=== PATIENT | female | born 1975 | race Caucasian/White ===

== ENCOUNTER 2019-02-14 16:08 | Inpatient (IN) | payer SELFPAY ==
[~2019-02-14 16:08] MED LIST: Iopamidol-370 76% 500 ML 1 ML ONE
--- NOTE | 2019-02-14 17:57 | CT ---
CT ANGIOGRAM THORAX WITH CONTRAST: (CTA pulmonary angiogram) DATE: 02/14/2019 HISTORY: 43-year-old female with tachycardia and dyspnea. TECHNIQUE: IV injection of iodinated contrast. Scan acquisition timing attempted to coincide with iodinated contrast bolus reaching maximal density in pulmonary arteries. 3-D MIP reconstructions. FINDINGS: There are extensive groundglass pulmonary opacities throughout most of the volume of the left lower l obe, and anterior segments of bilateral upper lobes. Relative sparing of apical segments. Moderate involvement of right middle lobe. No pleural effusion or pneumothorax. Enlarged liver with diffusely low hepatic attenuation. No thoracic aortic aneurysm or dissection. Nonspecific mild mediastinal and bilateral hilar lymphaden opathy. Trachea and bilateral mainstem bronchi are patent and clear. No pulmonary thromboembolism identified. IMPRESSION: 1) no pulmonary embolism. 2) extensive bilateral groundglass pulmonary densities. This is nonspecific, and the differential cash gnosis is long, but one possibility is noncardiogenic pulmonary edema. 3) hepatomegaly. 4) hepatic steatosis.
[2019-02-14] MEDS ORDERED: Acetaminophen 500 MG TAB PO PRN (23:12)
[2019-02-14] MEDS ORDERED: Diabetic Tussin 200 MG/10 ML UDCUP PO PRN (23:12)
[2019-02-14] MEDS ORDERED: hydrALAZINE 20 MG/ML VIAL SLOW IVP PRN (23:12)
[2019-02-14] MEDS ORDERED: Ondansetron ODT 4 MG TAB PO PRN (23:12)
[2019-02-14] MEDS ORDERED: Ondansetron PF 4 MG/2 ML Vial IVP PRN (23:12)
[2019-02-15] MEDS: methylPREDNISolone Sod Succ 40 MG VIAL IVP SCH ×2 (01:42→05:51)
[2019-02-15] MEDS: Sodium Chloride 0.9% 1,000 ML IV SCH ×3 (01:43→22:20)
[2019-02-15] MEDS ORDERED: Zolpidem Tartrate 5 MG TAB PO SCH ×2 (01:45→21:00)
--- NOTE | 2019-02-15 04:35 | HP ---
PRIMARY CARE PROVIDER: Dr. Mcknight. CHIEF COMPLAINT: Shortness of breath. HISTORY OF PRESENT ILLNESS: This is a 43-year-old female, who presents to [facility] Emergency Department in transfer from [place] [facility]. The patient initially presented with increased shortness of breath in the context of chronic tobacco abuse. The patient admitted with 2 to 3 days history of increasing shortness of breath, not amenable to home remedies for relief. The patient denied any travel history, recent exposures, or family members with similar symptoms. The patient states she did notice increased shortness of breath approximately 4 weeks prior with worsening symptoms in the last 24 to 48 hours. Chest imaging performed in the emergency room showed hyperinflation, and the patient was given normal saline in addition to bronchodilator therapy with DuoNeb, Rocephin 2 g IV, Solu-Medrol 125 mg, and transferred to [facility] Emergency Department. The patient admits to some improvement in her symptoms since presentation in the [place] [facility]. The patient denied any chest pain, but did admit to some chest tightness associated with shortness of breath, non-productive cough, and wheezing. The patient also admitted with associated fever but no diarrhea. PAST MEDICAL HISTORY: 1. Tobacco abuse. 2. Chronic obstructive pulmonary disease without formal diagnosis. 3. Hypertension. 4. Depression. 5. Insomnia. PAST SURGICAL HISTORY: 1. Status post left arm wound debridement. 2. Status post bilateral tubal ligation. CURRENT MEDICATIONS: 1. Fluoxetine 10 mg p.o. daily. 2. Lisinopril 10 mg p.o. daily. 3. Ambien 5 mg p.o. daily. ALLERGIES: NO KNOWN DRUG ALLERGIES. FAMILY HISTORY: Positive for hypertension. SOCIAL HISTORY: Resides in the [place], [place] area. Drinks up to 2 to 3 glasses of wine daily. Smokes up to a pack of cigarettes daily. No illicit drug use. REVIEW OF SYSTEMS: CONSTITUTIONAL: Negative for weight loss or gain, ability to conduct usual activities. SKIN: Negative for rash, itching. EYES: Negative for double vision, pain. ENT/MOUTH: Negative for nose bleeding, neck stiffness, pain, tenderness. CARDIOVASCULAR: Negative for palpitations, dyspnea on exertion, orthopnea. RESPIRATORY: Negative for shortness of breath, wheezing, cough, hemoptysis, fever or night sweats. GASTROINTESTINAL: Negative for poor appetite, abdominal pain, heartburn, nausea, vomiting, constipation, or diarrhea. GENITOURINARY: Negative for urgency, frequency, dysuria, nocturia. MUSCULOSKELETAL: Negative for pain, swelling. NEUROLOGIC/PSYCHIATRIC: Negative for anxiety, depression. ALLERGY/IMMUNOLOGIC: Negative for skin rash, bleeding tendency. Otherwise negative except as stated per HPI. PHYSICAL EXAMINATION: VITAL SIGNS: On admission, blood pressure 130/84, pulse 132, respiratory rate 22, temperature 98.9 degrees Fahrenheit, and O2 saturation 97% on room air. GENERAL APPEARANCE: This is a 43-year-old female, alert, and oriented x3, in [id number] respiratory distress. HEENT: Pupils are equal, round, reactive to light and accommodation. Extraocular muscles are intact. No scleral icterus. No conjunctival injection. Nares are patent. OP is clear. Oral mucosa dry. NECK: Supple. No cervical adenopathy. No thyromegaly. No carotid bruits. No JVD appreciated. Cervical spine with full active and passive range of motion. No meningeal signs noted. CHEST: Diminished breath sounds in bilateral lung chong with expiratory wheezing. CARDIOVASCULAR: S1, S2 with tachycardia. ABDOMEN: Rounded, soft, nontender, and nondistended. Bowel sounds are positive in all 4 quadrants. No palpable mass. No rebound or guarding appreciated. EXTREMITIES: Warm and dry with fair turgor. No clubbing, cyanosis, or asymmetric edema appreciated. Pulses palpable distally at the dorsalis pedis, posterior tibial, and popliteal arteries bilaterally. Capillary refill less than 2 seconds. NEUROLOGIC: Cranial nerves 2 through 12 are grossly intact. No focal or lateralizing signs appreciated. PERTINENT LABORATORY AND X-RAY FINDINGS: Sodium 132, potassium 3.7, chloride 94, CO2 of 22, BUN less than 4, creatinine 0.58, glucose 163, calcium 8.7, total bilirubin 4.4, AST 258, ALT 107, alkaline phosphatase 152, and total CK 101. Troponin I negative x1. BNP 22. Albumin 3.1. PT 12.8, INR 1.0, and PTT 26.3. CBC showed a white blood cell count of 9.5, hemoglobin 9.2, hematocrit 29, MCV 108, platelet count 210 with 80% neutrophils. Portable chest x-ray dated 02/14/2019, showed no acute cardiopulmonary process. CT angiogram of the chest dated 02/14/2019, showed no evidence for pulmonary embolus. Bilateral ground-glass opacities noted. ASSESSMENT/PLAN: 1. Acute chronic obstructive pulmonary disease exacerbation. The patient will be admitted to the telemetry unit. We will continue aggressive pulmonary supportive management. Solu-Medrol 40 mg IV q.6 hours with additional Levaquin 750 mg p.o. daily. Add Dulera 2 puffs inhaled b.i.d. Continue DuoNeb q.4 hours. Oxygen supplementation as needed to maintain O2 saturations greater than or equal to 90%. Consult Pulmonology Service in the a.m. Tobacco cessation resources. 2. Transaminitis. Suspect secondary to hepatic steatosis in conjunction with alcohol abuse. Repeat liver function tests in the a.m. GI consult for any further recommendations for management. 3. Alcohol abuse. Add Ativan 1 mg IV q.4 hours p.r.n. withdrawal symptoms. Add multivitamin, thiamine, and folate. 4. Tobacco abuse. We will offer smoking cessation resources prior to discharge. 5. Macrocytic anemia. Check B12 and folate levels in the a.m. Repeat CBC. 6. Hypertension. Resume home blood pressure regimen and monitor clinical response. 7. Prophylaxis. SCDs while in bed. Pepcid 20 mg p.o. b.i.d. CODE STATUS: Full. Surrogate medical decision maker not identified. Job ID: [id number]
[2019-02-15 05:13] LABS: ALT (SGPT) 87 U/L (8-55); AST (SGOT) 179 U/L (5-34); Albumin 2.7 g/dL (3.5-5.0); Alkaline Phosphatase 136 U/L (40-110); Anion Gap 13 mmol/L (10-20); BUN (Urea Nitrogen) 5 mg/dL (7.0-18.7); Bilirubin, Total 3.2 mg/dL (0.2-1.2); Calc. Creatinine Clearance 145 mL/min (70-130); Calcium 7.7 mg/dL (7.8-10.44); Carbon Dioxide 21 mmol/L (22-29); Chloride 101 mmol/L (98-107); Estimated GFR-MDRD Greater than 90; Globulin 2.6 g/dL (2.4-3.5); Glucose 198 mg/dL (70-105); Potassium 3.9 mmol/L (3.5-5.1); Protein, Total 5.3 g/dL (6.0-8.3); Sodium 131 mmol/L (136-145)
[2019-02-15 05:20] LABS: Hemoglobin 8.5 g/dL (12.0-16.0); Mean Corpuscular Hemoglobin 35.1 pg (27.0-31.0); Mean Platelet Volume 7.7 fL (7.4-10.4); Platelet Count 197 thou/uL (130-400); RBC Distribution Width 14.2 % (11.5-14.5); Red Blood Cell (RBC) Count 2.41 mill/uL (4.20-5.40); White Blood Cell (WBC) Count 9.6 thou/uL (4.8-10.8)
[2019-02-15 06:11] LABS: Band 7 % (5-11); Lymphocytes 11 % (21-51); MDiff Complete? YES; Monocytes 3 % (0-10); Myelocyte 1 % (0-0); Neutrophil 78 % (42-75); Nucleated RBC 1 % (0)
[2019-02-15 07:09] LABS: Vitamin B12 Greater than 2000 pg/mL (211-911)
[2019-02-15] MEDS: Mometasone/Formoterol 120 PUFF INHALER INH SCH ×2 (07:14→19:17)
[2019-02-15] MEDS: Thiamine 100 MG TAB PO SCH (08:55)
[2019-02-15] MEDS: Multivitamin W/ Minerals 1 TAB PO SCH (08:55)
[2019-02-15] MEDS: Folic Acid 1 MG TAB PO SCH (08:55)
[2019-02-15] MEDS: Famotidine 20 MG TAB PO SCH ×2 (08:55→21:34)
[2019-02-15] MEDS: Lorazepam 2 MG/ML VIAL SLOW IVP PRN ×4 (09:01→21:33)
[2019-02-15 10:52] LABS: HBSAg Index 0.14 S/CO (0-0.99); Hep B Surf Ag Non-Reactive S/CO (NonReactive)
[2019-02-15 10:53] LABS: Hep A IgM AB Non-Reactive (NonReactive); Hep A IgM S/CO 0.13 S/CO (0-0.79); Hep C IgG Ab Non-Reactive (NonReactive); Hep C Index 0.09 S/CO (0-0.79)
[2019-02-15 10:54] LABS: HBCM Index 0.12 S/CO (0-0.79); Hepatitis B Core IgM Abs Non-Reactive (NonReactive)
[2019-02-15 11:47] LABS: Troponin I Less than 0.010 ng/mL (< 0.028)
[2019-02-15 12:02] LABS: Ferritin 1269.18 ng/mL (10-291)
[2019-02-15 14:54] LABS: Troponin I Less than 0.010 ng/mL (< 0.028)
--- NOTE | 2019-02-15 15:21 | ULT ---
EXAM: US Gallbladder RUQ CLINICAL HISTORY: Elevated LFTs. COMPARISON: None. FINDINGS: Pancreas: Obscured by bowel gas Liver:Heterogeneous echotexture limiting evaluation for hepatic masses and intrahepatic biliary dilat ation. Right hepatic lobe measures 18.1 cm Gallbladder: Contracted, likely due to nonfasting state. Brand's sign:Not commented upon Portal Vein: Patent. Appropriate directional flow Bile ducts: Poorly defined common bile duct Right kidney: No hydronephrosis. Right kidney measures 11.7 x 4.0 x 5.1 cm in length. IMPRESSION: 1. Contracted gallbladder due to nonfasting state. 2. Suboptimal evaluation the common bile duct. 3. Heterogeneous hepatic parenchymal echotexture due to hepatic steatosis or hepatocellular disease. CT angiogram the chest done 02/14/2019 does demonstrate hepatic steatosis.
[2019-02-15 19:01] LABS: Troponin I 0.011 ng/mL (< 0.028)
[2019-02-15] MEDS: Zolpidem Tartrate 5 MG TAB PO SCH (21:34)
[2019-02-16] MEDS: Lorazepam 2 MG/ML VIAL SLOW IVP PRN ×5 (04:30→21:02)
[2019-02-16] MEDS: Sodium Chloride 0.9% 1,000 ML IV SCH ×2 (05:19→08:59)
[2019-02-16 05:26] LABS: Cholesterol 285 mg/dl (< 200 Desired); HDL Cholesterol Less than 8 mg/dL (>60 Neg Risk); Triglycerides 536 mg/dL (Less than 150)
[2019-02-16 05:46] LABS: Cardiac Risk TEST NOT PERFORMED (Less than 4.5)
[2019-02-16] MEDS: Mometasone/Formoterol 120 PUFF INHALER INH SCH ×2 (07:31→18:50)
--- NOTE | 2019-02-16 08:16 | PDOC.HOSPP ---
- Subjective Encounter Date: 02/15/19 Encounter Time: 11:30 Subjective: pt up in bed no complains - Objective Vital Signs & Weight: Vital Signs (12 hours) Temp Pulse Resp BP BP Pulse Ox 02/16/19 07:27 89 14 96 02/16/19 04:30 94/53 L 02/16/19 04:00 98.7 F 91 18 94/53 L 94 L 02/16/19 01:58 12 02/15/19 23:00 97.9 F 130 H 24 H 149/63 H 119/63 93 L 02/15/19 22:01 115 H 16 Weight Admit Weight 141 lb 3.2 oz Weight 145 lb I&O: 02/15/19 02/16/19 02/17/19 06:59 06:59 06:59 Intake Total 900 3480 Balance 900 3480 Result Diagrams: 02/16/19 09:37 02/16/19 09:37 Hospitalist ROS - Review of Systems Cardiovascular: denies: chest pain, palpitations, orthopnea, paroxysmal noc. dyspnea, edema, light headedness, other Gastrointestinal: denies: nausea, vomiting, abdominal pain, diarrhea, constipation, melena, hematochezia, other Genitourinary: denies: dysuria, frequency, incontinence, hematuria, retention, other - Medication Medications: Active Medications Generic Name Dose Route Start Last Admin Trade Name Freq PRN Reason Stop Dose Admin Albuterol/Ipratropium 3 ml 02/15/19 02:30 02/16/19 07:27 Duoneb NEB 3 ml [id number] MK Administration Famotidine 20 mg 02/15/19 09:00 02/15/19 21:34 Pepcid PO 20 mg BID MK Administration Folic Acid 1 mg 02/15/19 09:00 02/15/19 08:55 Folvite PO 1 mg DAILY MK Administration Sodium Chloride 1,000 mls @ 100 mls/hr 02/14/19 23:15 02/16/19 05:19 Normal Saline 0.9% IV Not Given .Q10H [facility] Iron/Minerals/Multivitamins 1 tab 02/15/19 09:00 02/15/19 08:55 Theragran M PO 1 tab DAILY MK Administration Levofloxacin 750 mg 02/15/19 06:00 02/16/19 05:18 Levaquin PO 750 mg 0600 MK Administration Lorazepam 1 mg 02/14/19 23:27 02/16/19 04:30 Ativan SLOW IVP 1 mg Q4H PRN Administration Anxiety/Agitation Mometasone Furoate/Formoterol Fumar 2 puff 02/15/19 06:30 02/16/19 07:31 Dulera 200 Mcg/5 Mcg Inhaler INH 2 puff BID-RT MK Administration Thiamine HCl 100 mg 02/15/19 09:00 02/15/19 08:55 Thiamine PO 100 mg DAILY MK Administration Zolpidem Tartrate 5 mg 02/15/19 21:00 02/15/19 21:34 Ambien PO 5 mg HS MK Administration - Exam Neck: negative: supple, symmetric, no JVD, no thyromegaly, no lymphadenopathy, no carotid bruit, JVD Heart: negative: RRR, no murmur, no gallops, no rubs, normal peripheral pulses, irregular, diminshed peripheral pulses, murmur present, II/IV, III/IV Respiratory: negative: CTAB, no wheezes, no rales, no ronchi, normal chest expansion, no tachypnea, normal percussion, rales, rhonchi, tachypneic, wheezes Hosp A/P (1) SOB (shortness of breath) Code(s): R06.02 - SHORTNESS OF BREATH Status: Acute (2) Alcohol abuse Code(s): F10.10 - ALCOHOL ABUSE, UNCOMPLICATED Status: Acute (3) Elevated LFTs Code(s): R94.5 - ABNORMAL RESULTS OF LIVER FUNCTION STUDIES Status: Acute (4) Macrocytic anemia Code(s): D53.9 - NUTRITIONAL ANEMIA, UNSPECIFIED Status: Acute (5) Hypertriglyceridemia Code(s): E78.1 - PURE HYPERGLYCERIDEMIA Status: Acute - Plan pt is a smoker and drinks alcohol but has never been dx with copd. Her from cirrhosis of liver per pt. will get a ruq ultrasound. Her lfts are elvevated due to her alcohol abuse. she use to drink a bottle of vodka a day. Now she drinks a bottle of wine daily. she is on ASE protocol.
[2019-02-16] MEDS: Thiamine 100 MG TAB PO SCH (08:53)
[2019-02-16] MEDS: Multivitamin W/ Minerals 1 TAB PO SCH (08:53)
[2019-02-16] MEDS: Lisinopril 2.5 MG TAB PO SCH (08:54)
[2019-02-16] MEDS: Famotidine 20 MG TAB PO SCH ×2 (08:54→21:02)
[2019-02-16] MEDS: FLUoxetine HCl 20 MG CAP PO SCH (08:54)
[2019-02-16] MEDS: Folic Acid 1 MG TAB PO SCH (08:54)
[2019-02-16] MEDS ORDERED: methylPREDNISolone Sod Succ 40 MG VIAL IVP SCH (09:00)
[2019-02-16 09:56] LABS: #Eosinphils 0.1 thou/uL (0.0-0.7); #Lymphocytes 2.3 thou/uL (1.20-3.40); #Monocytes 0.4 thou/uL (0.11-0.59); #Neutrophils 6.2 thou/uL (1.40-6.50); %Basophils 0.5 % (0.0-1.0); %Eosinophils 0.9 % (0.0-10.0); %Lymphocytes 25.5 % (21.0-51.0); %Monocytes 4.5 % (0.0-10.0); %Neutrophils 68.7 % (42.0-75.0); Hemoglobin 7.8 g/dL (12.0-16.0); Mean Corpuscular HGB CONC 34.8 g/dL (32.0-36.0); Mean Corpuscular Hemoglobin 36.1 pg (27.0-31.0); Mean Platelet Volume 7.7 fL (7.4-10.4); Platelet Count 192 thou/uL (130-400); RBC Distribution Width 14.6 % (11.5-14.5); Red Blood Cell (RBC) Count 2.16 mill/uL (4.20-5.40)
[2019-02-16 09:57] LABS: Prothrombin Time 13.3 SEC (12.0-14.7)
[2019-02-16 10:13] LABS: ALT (SGPT) 91 U/L (8-55); AST (SGOT) 255 U/L (5-34); Albumin 2.5 g/dL (3.5-5.0); Alkaline Phosphatase 118 U/L (40-110); Anion Gap 9 mmol/L (10-20); BUN (Urea Nitrogen) 7 mg/dL (7.0-18.7); Calc. Creatinine Clearance 143 mL/min (70-130); Calcium 7.6 mg/dL (7.8-10.44); Carbon Dioxide 22 mmol/L (22-29); Chloride 104 mmol/L (98-107); Estimated GFR-MDRD Greater than 90; Globulin 2.4 g/dL (2.4-3.5); Glucose 122 mg/dL (70-105); Potassium 3.6 mmol/L (3.5-5.1); Protein, Total 4.9 g/dL (6.0-8.3); Sodium 131 mmol/L (136-145)
[2019-02-16] MEDS ORDERED: predniSONE 20 MG TAB PO SCH (10:15)
[2019-02-16] MEDS: Fenofibrate 48 MG TAB PO SCH (11:09)
--- NOTE | 2019-02-16 14:47 | PDOC.HOSPP ---
- Subjective Encounter Date: 02/16/19 Encounter Time: 10:00 Subjective: pt up in bed feels well. - Objective Vital Signs & Weight: Vital Signs (12 hours) Temp Pulse Resp BP BP Pulse Ox 02/16/19 11:13 98.0 F 122 H 18 113/62 92 L 02/16/19 10:26 111 H 18 99 02/16/19 08:54 110 H 107/55 L 02/16/19 08:07 99 F 110 H 18 107/55 L 93 L 02/16/19 08:00 107/55 L 02/16/19 07:27 89 14 96 02/16/19 04:30 94/53 L 02/16/19 04:00 98.7 F 91 18 94/53 L 94 L Weight Admit Weight 141 lb 3.2 oz Weight 145 lb I&O: 02/15/19 02/16/19 02/17/19 06:59 06:59 06:59 Intake Total 900 3480 Balance 900 3480 Result Diagrams: 02/16/19 09:37 02/16/19 09:37 Hospitalist ROS - Review of Systems Respiratory: denies: cough, dry, shortness of breath, hemoptysis, SOB with excertion, pleuritic pain, sputum, wheezing, other Cardiovascular: denies: chest pain, palpitations, orthopnea, paroxysmal noc. dyspnea, edema, light headedness, other Gastrointestinal: denies: nausea, vomiting, abdominal pain, diarrhea, constipation, melena, hematochezia, other - Medication Medications: Active Medications Generic Name Dose Route Start Last Admin Trade Name Freq PRN Reason Stop Dose Admin Albuterol/Ipratropium 3 ml 02/15/19 02:30 02/16/19 10:26 Duoneb NEB 3 ml [id number] MK Administration Famotidine 20 mg 02/15/19 09:00 02/16/19 08:54 Pepcid PO 20 mg BID MK Administration Fenofibrate 48 mg 02/16/19 09:46 02/16/19 11:09 Tricor PO 48 mg DAILY MK Administration Fluoxetine HCl 20 mg 02/16/19 09:00 02/16/19 08:54 Prozac PO 20 mg DAILY MK Administration Folic Acid 1 mg 02/15/19 09:00 02/16/19 08:54 Folvite PO 1 mg DAILY MK Administration Iron/Minerals/Multivitamins 1 tab 02/15/19 09:00 02/16/19 08:53 Theragran M PO 1 tab DAILY MK Administration Levofloxacin 750 mg 02/15/19 06:00 02/16/19 05:18 Levaquin PO 750 mg 0600 MK Administration Lisinopril 2.5 mg 02/16/19 09:00 02/16/19 08:54 Zestril PO 2.5 mg DAILY MK Administration Lorazepam 1 mg 02/14/19 23:27 02/16/19 14:21 Ativan SLOW IVP 1 mg Q4H PRN Administration Anxiety/Agitation Mometasone Furoate/Formoterol Fumar 2 puff 02/15/19 06:30 02/16/19 07:31 Dulera 200 Mcg/5 Mcg Inhaler INH 2 puff BID-RT MK Administration Thiamine HCl 100 mg 02/15/19 09:00 02/16/19 08:53 Thiamine PO 100 mg DAILY MK Administration Zolpidem Tartrate 5 mg 02/15/19 21:00 02/15/19 21:34 Ambien PO 5 mg HS MK Administration - Exam Neck: negative: supple, symmetric, no JVD, no thyromegaly, no lymphadenopathy, no carotid bruit, JVD Heart: negative: RRR, no murmur, no gallops, no rubs, normal peripheral pulses, irregular, diminshed peripheral pulses, murmur present, II/IV, III/IV Respiratory: negative: CTAB, no wheezes, no rales, no ronchi, normal chest expansion, no tachypnea, normal percussion, rales, rhonchi, tachypneic, wheezes Hosp A/P (1) SOB (shortness of breath) Code(s): R06.02 - SHORTNESS OF BREATH Status: Acute (2) Alcohol abuse Code(s): F10.10 - ALCOHOL ABUSE, UNCOMPLICATED Status: Acute (3) Elevated LFTs Code(s): R94.5 - ABNORMAL RESULTS OF LIVER FUNCTION STUDIES Status: Acute (4) Macrocytic anemia Code(s): D53.9 - NUTRITIONAL ANEMIA, UNSPECIFIED Status: Acute (5) Hypertriglyceridemia Code(s): E78.1 - PURE HYPERGLYCERIDEMIA Status: Acute - Plan pt is a smoker and drinks alcohol but has never been dx with copd. Her from cirrhosis of liver per pt. will get a ruq ultrasound. Her lfts are elvevated due to her alcohol abuse. she use to drink a bottle of vodka a day. Now she drinks a bottle of wine daily. she is on ASE protocol. 02/16 will stop iv fluids she is eating. she continues to withdraw. will continue prn ativan. will replace electrolytes. Her occult was negative. lfts improving. hepatitis panel negative.
[2019-02-16 16:17] LABS: HIV (1/2) Antibody/Antigen Non-Reactive (NonReactive); HIV 1/2 INDEX 0.06 S/CO (<1.00)
[2019-02-16] MEDS: Nicotine 14 MG PATCH TD SCH (18:32)
[2019-02-16] MEDS: methylPREDNISolone Sod Succ 40 MG VIAL IVP SCH (18:33)
[2019-02-16] MEDS: Zolpidem Tartrate 5 MG TAB PO SCH (21:02)
--- NOTE | 2019-02-16 22:05 | CON ---
DATE OF CONSULTATION: HISTORY OF PRESENT ILLNESS: Carol Ozuna is a 43-year-old female, admitted with one month of shortness of breath and a cough. She has been blaming it on her CHIDI inhibitor after reading the package insert. She reached a point where she could not take it anymore, so she came to the hospital and was admitted two days ago. Two months ago, she said she could walk as far as she needed to quickly without running out of breath. She has no history of asthma. She does have a history of hypertension. PAST SURGICAL HISTORY: Remarkable for an arm wound debridement and a tubal ligation. MEDICATIONS: She is on fluoxetine, lisinopril, and Ambien prior to admission. ALLERGIES: SHE HAS NO DRUG ALLERGIES. FAMILY HISTORY: Negative for lung disease in early age. Positive for hypertension. She drinks wine in the evening. Smokes a pack of cigarettes a day, has been smoking since she was a teenager. REVIEW OF SYSTEMS: Otherwise negative. PHYSICAL EXAMINATION: GENERAL: She is in no distress. VITAL SIGNS: She is afebrile. Heart rate is 108, respiratory rate is 20. When I saw her, oximetry was fluctuating between the low 90s and the high 90s on room air, blood pressure 120/66. HEENT: Pupils are equal. Sclerae are anicteric. NECK: Supple. No lymphadenopathy. LUNGS: Remarkable for distant breath sounds with prolonged expiratory phase. HEART: Regular rhythm. S1 and S2 are normal. ABDOMEN: Soft and nontender. EXTREMITIES: Without clubbing, cyanosis, or edema. NEURO: Nonfocal. LABORATORY DATA: White count 9, hemoglobin 7.8 with an MCV of 104, platelets 192. Troponin was normal. Hepatitis panel was negative. Chest CT was reviewed, which shows ground-glass subtle infiltrates diffusely in a patchy fashion. There is no evidence of apical bullous disease. IMPRESSION: One month of symptoms with patchy bilateral pulmonary infiltrates and clinical evidence of bronchospasm. Allergic bronchopulmonary aspergillosis is in the differential. Hypersensitivity pneumonitis and the vasculitides usually are not associated with bronchospasm. Higher dose steroids are probably indicated at this time. Antimicrobial coverage is reasonable. Checking for flu, checking for HIV, checking for an antineutrophil cytoplasmic antibody, and SUSANA were all reasonable at her age. A hypersensitivity pneumonitis panel is reasonable and Aspergillus antibody panel is reasonable. I doubt this is a diffuse fungal pneumonia. I will be happy to follow the other physicians caring for. TIME SPENT: This is a 70-minute consult, 50% of the time spent on the unit coordinating care. Job ID: [id number]
[2019-02-17] MEDS: methylPREDNISolone Sod Succ 40 MG VIAL IVP SCH ×4 (01:39→18:08)
[2019-02-17] MEDS: Lorazepam 2 MG/ML VIAL SLOW IVP PRN ×3 (01:39→21:44)
[2019-02-17 02:31] LABS: Bacteria/HPF None Seen HPF (None Seen); Bilirubin 1+ (Negative); Blood, Urine Negative (Negative); Clarity Clear (Clear); Glucose, Urine (Dipstick) Normal (Negative); Leukocyte Negative Leu/uL (Negative); Nitrite Negative (Negative); Protein, Urine (Dipstick) Negative (Neg-Trace); RBC/HPF 0-3 HPF (0-3); Squamous Epithelial 0-3 HPF (0-3); Urobilinogen Normal mg/dL (Less than 2); WBC/HPF 0-3 HPF (0-3)
[2019-02-17] MEDS: Mometasone/Formoterol 120 PUFF INHALER INH SCH ×2 (07:15→19:07)
[2019-02-17] MEDS ORDERED: predniSONE 20 MG TAB PO SCH (08:00)
[2019-02-17] MEDS ORDERED: PROPOFOL 200 MG/20 ML VIAL ONE (09:40)
[2019-02-17] MEDS ORDERED: Lidocaine 1% PF 5 ML VIAL ONE (09:40)
[2019-02-17] MEDS ORDERED: Ondansetron HCl/PF 4 MG/2 ML Vial IVP PRN (11:02)
[2019-02-17] MEDS ORDERED: Midazolam HCl 2 mg/2 ml Vial ONE (11:17)
--- NOTE | 2019-02-17 11:59 | OP ---
DATE OF PROCEDURE: 02/17/2019 PREOPERATIVE DIAGNOSIS: Esophagogastroduodenoscopy with biopsy. PREOPERATIVE DIAGNOSIS: Anemia. POSTOPERATIVE DIAGNOSES: 1. Linear erosion, distal esophagus, with esophagitis. 2. Two shallow ulcers of the gastric antrum. 3. Normal duodenum. DESCRIPTION OF PROCEDURE: The patient was placed on her left lateral position and was given sedation by Anesthesia Department. A Pentax video gastroscope under direct vision passed down the oropharynx past the GE junction into the stomach and subsequently into the descending duodenum. The upper two-thirds of the esophageal mucosa appeared normal. She had a linear erosion of the distal esophagus with esophagitis. The patient had no esophageal varices. The GE junction, no pathology. Retroflexion failed to show any pathology in fundus or cardia. The gastric body, no pathology. The gastric antrum showed two shallow ulcerations. The duodenal bulb, descending duodenum, no lesion seen. Biopsies obtained of the gastric antrum and gastric body. The stomach decompressed and the scope removed. RECOMMENDATIONS: 1. Iron supplement. 2. Protonix 40 once a day. Job ID: [id number]
[2019-02-17] MEDS: Lisinopril 2.5 MG TAB PO SCH (12:22)
[2019-02-17] MEDS: Multivitamin W/ Minerals 1 TAB PO SCH (12:23)
[2019-02-17] MEDS: Fenofibrate 48 MG TAB PO SCH (12:23)
[2019-02-17] MEDS: Thiamine 100 MG TAB PO SCH (12:24)
[2019-02-17] MEDS: Famotidine 20 MG TAB PO SCH ×2 (12:24→21:42)
[2019-02-17] MEDS: FLUoxetine HCl 20 MG CAP PO SCH (12:24)
[2019-02-17] MEDS: Folic Acid 1 MG TAB PO SCH (12:24)
--- NOTE | 2019-02-17 14:40 | PDOC.HOSPP ---
- Objective Vital Signs & Weight: Vital Signs (12 hours) Temp Pulse Resp BP BP Pulse Ox 02/17/19 12:15 97.6 F 105 H 18 142/70 H 142/70 H 98 02/17/19 08:59 98.5 F 118 H 14 129/78 129/78 92 L 02/17/19 07:16 91 L 02/17/19 07:14 117 H 18 91 L 02/17/19 04:00 98.4 F 98 18 138/84 138/84 100 02/17/19 03:38 99 02/17/19 03:37 98 Weight Admit Weight 141 lb 3.2 oz Weight 143 lb 3.2 oz I&O: 02/16/19 02/17/19 02/18/19 06:59 06:59 06:59 Intake Total 3480 240 Balance 3480 240 Result Diagrams: 02/16/19 09:37 02/16/19 09:37 Hospitalist ROS - Medication Medications: Active Medications Generic Name Dose Route Start Last Admin Trade Name Russq PRN Reason Stop Dose Admin Albuterol/Ipratropium 3 ml 02/15/19 02:30 02/17/19 10:58 Duoneb NEB Not Given [id number] MK Famotidine 20 mg 02/15/19 09:00 02/17/19 12:24 Pepcid PO 20 mg BID MK Administration Fenofibrate 48 mg 02/16/19 09:46 02/17/19 12:23 Tricor PO 48 mg DAILY MK Administration Fluoxetine HCl 20 mg 02/16/19 09:00 02/17/19 12:24 Prozac PO 20 mg DAILY MK Administration Folic Acid 1 mg 02/15/19 09:00 02/17/19 12:24 Folvite PO 1 mg DAILY MK Administration Iron/Minerals/Multivitamins 1 tab 02/15/19 09:00 02/17/19 12:23 Theragran M PO 1 tab DAILY MK Administration Levofloxacin 750 mg 02/15/19 06:00 02/17/19 04:51 Levaquin PO Not Given 0600 MK Lisinopril 2.5 mg 02/16/19 09:00 02/17/19 12:22 Zestril PO 2.5 mg DAILY MK Administration Lorazepam 1 mg 02/14/19 23:27 02/17/19 01:39 Ativan SLOW IVP 1 mg Q4H PRN Administration Anxiety/Agitation Methylprednisolone Sodium Succinate 40 mg 02/16/19 18:00 02/17/19 12:27 Solu-Medrol IVP 40 mg Q6HR MK Administration Mometasone Furoate/Formoterol Fumar 2 puff 02/15/19 06:30 02/17/19 07:15 Dulera 200 Mcg/5 Mcg Inhaler INH 2 puff BID-RT MK Administration Nicotine 14 mg 02/16/19 18:00 02/16/19 18:32 Nicoderm Patch TD 14 mg Q24HR MK Administration Thiamine HCl 100 mg 02/15/19 09:00 02/17/19 12:24 Thiamine PO 100 mg DAILY MK Administration Zolpidem Tartrate 5 mg 02/15/19 21:00 02/16/19 21:02 Ambien PO 5 mg HS MK Administration Hosp A/P (1) SOB (shortness of breath) Code(s): R06.02 - SHORTNESS OF BREATH Status: Acute (2) Alcohol abuse Code(s): F10.10 - ALCOHOL ABUSE, UNCOMPLICATED Status: Acute (3) Elevated LFTs Code(s): R94.5 - ABNORMAL RESULTS OF LIVER FUNCTION STUDIES Status: Acute (4) Macrocytic anemia Code(s): D53.9 - NUTRITIONAL ANEMIA, UNSPECIFIED Status: Acute (5) Hypertriglyceridemia Code(s): E78.1 - PURE HYPERGLYCERIDEMIA Status: Acute (6) Esophagitis Code(s): K20.9 - ESOPHAGITIS, UNSPECIFIED Status: Acute (7) Gastric ulcer Code(s): K25.9 - GASTRIC ULCER, UNSP ACUTE OR CHRONIC, W/O HEMOR OR PERF Status: Acute - Plan pt is a smoker and drinks alcohol but has never been dx with copd. Her from cirrhosis of liver per pt. will get a ruq ultrasound. Her lfts are elvevated due to her alcohol abuse. she use to drink a bottle of vodka a day. Now she drinks a bottle of wine daily. she is on ASE protocol. 02/17 s/p egd which indicated gastic ulcer and esophagitis. will continue Pepcid. autoimmune work up sent per pulmonary. will check lab work in am. will change ativan to q6 prn for withdrawal.
[2019-02-17] MEDS: Nicotine 14 MG PATCH TD SCH (18:08)
[2019-02-17] MEDS ORDERED: Sodium Chloride 0.9% 10 ML ONE (20:12)
--- NOTE | 2019-02-17 20:31 | PRG ---
DATE OF SERVICE: 02/17/2019 SUBJECTIVE: Laith says she is feeling a little bit better. She underwent endoscopy this morning, which showed esophagitis and gastric ulcers. OBJECTIVE: VITAL SIGNS: Have been stable, she has mild resting tachycardia, she is afebrile respiratory rates in the teens, oximetry is 94%. LUNGS: Remarkable for distant breath sounds. No pulmonary wheezes today. HEART: Regular rhythm. ABDOMEN: Soft. Urinalysis yesterday showed no microhematuria. HIV was negative. Other studies that were ordered were pending. IMPRESSION: Bilateral pulmonary infiltrates with cough, shortness of breath, and bronchospasm. Her expiratory phase is improved. The differential for diffuse infiltrates is quite broad. Serology for Aspergillus and neutrophil cytoplasmic antibody, hypersensitivity pneumonitis and an SUSANA are all pending. Given her clinical improvement, I would continue with current care. She may have significant obstructive lung disease, but this cannot be determined until she has recovered and has pulmonary function tests. Without a doubt, she was bronchospastic yesterday. We will continue to follow. Job ID: [id number]
[2019-02-17] MEDS: Zolpidem Tartrate 5 MG TAB PO SCH (21:42)
[2019-02-18] MEDS ORDERED: Sodium Chloride 0.9% 10 ML ONE (00:58)
[2019-02-18] MEDS: methylPREDNISolone Sod Succ 40 MG VIAL IVP SCH ×4 (01:02→18:21)
[2019-02-18 05:09] LABS: ALT (SGPT) 157 U/L (8-55); AST (SGOT) 320 U/L (5-34); Albumin 2.7 g/dL (3.5-5.0); Alkaline Phosphatase 142 U/L (40-110); Anion Gap 13 mmol/L (10-20); BUN (Urea Nitrogen) 9 mg/dL (7.0-18.7); Calc. Creatinine Clearance 157 mL/min (70-130); Calcium 8.3 mg/dL (7.8-10.44); Carbon Dioxide 22 mmol/L (22-29); Chloride 101 mmol/L (98-107); Estimated GFR-MDRD Greater than 90; Globulin 2.5 g/dL (2.4-3.5); Glucose 169 mg/dL (70-105); Magnesium 1.9 mg/dL (1.6-2.6); Protein, Total 5.2 g/dL (6.0-8.3); Sodium 132 mmol/L (136-145)
[2019-02-18 05:41] LABS: Anisocytosis SLIGHT = 6-15 cells (100X) (0-5/hpf); Band 8 % (5-11); Hemoglobin 8.2 g/dL (12.0-16.0); Lymphocytes 16 % (21-51); MDiff Complete? YES; Macrocytosis SLIGHT = 6-15 cells (100X) (0-5/hpf); Mean Corpuscular HGB CONC 34.5 g/dL (32.0-36.0); Mean Corpuscular Hemoglobin 36.3 pg (27.0-31.0); Monocytes 4 % (0-10); Neutrophil 72 % (42-75); Nucleated RBC 2 % (0); Platelet Count 245 thou/uL (130-400); Polychromasia MODERATE = 3-4 cells (100X) (0-2/hpf); Red Blood Cell (RBC) Count 2.27 mill/uL (4.20-5.40); White Blood Cell (WBC) Count 9.4 thou/uL (4.8-10.8)
[2019-02-18] MEDS: Mometasone/Formoterol 120 PUFF INHALER INH SCH ×2 (06:54→18:40)
[2019-02-18] MEDS: Lorazepam 2 MG/ML VIAL SLOW IVP PRN ×2 (07:40→15:17)
--- NOTE | 2019-02-18 08:48 | CON ---
DATE OF CONSULTATION: 02/15/2019 REASON FOR CONSULTATION: Anemia, possible liver cirrhosis. HISTORY OF PRESENT ILLNESS: Ms. Carol Ozuna is a very pleasant 43-year-old female, who does see Dr. aLli Mcknight in [place]. The patient had seen Dr. Mcknight approximately 10 days ago with some dyspnea and some mild coughing. She was told to have bronchitis and was given a trial of antibiotics and also systemic steroids. The symptoms did not get better. Her dyspnea got worse. She came to the ER yesterday. She had a CT angiogram, which was negative for a pulmonary embolism. She does have ground-glass opacities in both lung chong and a pulmonary consultation is pending. The patient has had no fever. No history of any chronic cough. The patient is a chronic smoker and smokes a pack of cigarettes per day since age of 19. She also has history of chronic alcohol abuse at the same time. She used to drink vodka almost 20 plus years. Apparently, her of liver cirrhosis due to alcohol abuse approximately 3 years ago. She quit drinking vodka and started drinking wine at least 4 glasses every day. The patient has no prior history of liver disease. They never told her of any abnormal LFTs. The patient has abdominal pain. No nausea or vomiting. No hematemesis. No melena. Her bowel movements are regular. She had no specific GI symptoms. Her primary complaint is dyspnea and she feels nervous and anxious and tremulous. ALLERGIES: NONE. SOCIAL HISTORY: The patient is 3 years ago. Her of liver cirrhosis due to alcohol abuse. She is a chronic smoker. Smokes 1/2 pack of cigarettes per day. She also drinks alcohol and at least 4 glasses of wine every day until for the last 3 years. Before that she was drinking large amount of vodka. MEDICAL ILLNESSES: 1. COPD, possible. 2. Hypertension. 3. Depression. 4. Insomnia. SURGERIES: 1. History of surgery of the left lumbar wound debridement. 2. Tubal ligation. MEDICATIONS: Include: 1. Fluoxetine. 2. Lisinopril. 3. Ambien. FAMILY HISTORY: Hypertension. No family history of any cancer stroke, or diabetes. Medication list,reviewed. REVIEW OF SYSTEMS: SYSTEMS TECHNOLOGIST: No history of any dizziness, TIA, syncope, or chronic headache. . RESPIRATORY SYSTEM: No history of chronic cough. No hemoptysis, but dyspnea of recent onset over the last 10 days. CARDIOVASCULAR SYSTEM: No chest pain. No palpitation. No dyspnea, orthopnea, or PND. GI: No abdominal pain. No nausea or vomiting. No hematochezia. No melena. : No dysuria, hematuria, or frequency of urination. MUSCULOSKELETAL: Nonrelevant. NEUROLOGIC: Nonrelevant. ENDOCRINE: Nonrelevant. HEMATOLOGICAL: Nonrelevant. NEUROPSYCHIATRY: History of depression, anxiety. HEENT: No diplopia. No impaired vision. No hearing loss. No nosebleed. No sore throat. PHYSICAL EXAMINATION: GENERAL: She appears very comfortable. She is awake, alert, and communicative. She is in no distress. VITAL SIGNS: She is afebrile. Her pulse is 103, blood pressure 108/55. HEENT: Conjunctivae are clear. NECK: Supple. No adenitis or thyromegaly. CARDIOVASCULAR SYSTEM: First and second heart sounds are normal. LUNGS: Clear to auscultation. ABDOMEN: Soft. Abdomen is distended. Abdomen is nontender. There is no organomegaly. No masses. Bowel sounds normal. EXTREMITIES: Reveal no edema. LABORATORY DATA: From today; WBC 9600, hemoglobin 8.5, hematocrit 24.8, MCV 103, platelet count is 197,000, polymorphs 78, bands 7, lymphocytes 11. Chem-7; sodium 131, potassium 3.9, chloride 101, bicarb 21, BUN 5, creatinine 0.50, glucose 198, calcium 7.7, bilirubin 3.2, AST 179, ALT is 87, alkaline phosphatase 136. Folate 3.40. Vitamin B12 more than 2000. She had CT angiogram yesterday. Does show extensive bilateral ground-glass pulmonary densities. No pulmonary embolism. Hepatic steatosis and . IMPRESSION: 1. A 43-year-old female with dyspnea over the last 10 days. She has had a course of systemic steroids and antibiotics, but she did not improve. She had no hemoptysis. She had no chest pain or palpitation. CT angio does show some bilateral pulmonary opacities and a pulmonary consult is pending. 2. Anemia, macrocytic, most likely reflecting chronic alcohol abuse. She has no history of hematochezia or any melena or any other source of bleeding. 3. Chronic alcohol abuse. Does have hepatitis, alcoholic liver disease. I am not sure if she has underlying liver cirrhosis. 4. Depression and anxiety. RECOMMENDATION: 1. Stool for occult blood. 2. Obtain abdominal sonogram to see if she has any acistes. I will make further recommendations depending on pulmonary input. Job ID: [id number]
[2019-02-18] MEDS: Famotidine 20 MG TAB PO SCH ×2 (09:09→21:09)
[2019-02-18] MEDS: Folic Acid 1 MG TAB PO SCH (09:09)
[2019-02-18] MEDS: Lisinopril 2.5 MG TAB PO SCH (09:10)
[2019-02-18] MEDS: Multivitamin W/ Minerals 1 TAB PO SCH (09:10)
[2019-02-18] MEDS: Fenofibrate 48 MG TAB PO SCH (09:10)
[2019-02-18] MEDS: Thiamine 100 MG TAB PO SCH (09:10)
[2019-02-18] MEDS: FLUoxetine HCl 20 MG CAP PO SCH (09:10)
[2019-02-18] MEDS ORDERED: Gabapentin 300 MG CAP PO SCH ×2 (09:43→10:00)
--- NOTE | 2019-02-18 11:04 | PRG ---
DATE OF SERVICE: 02/18/2019 SUBJECTIVE: Overall, she feels somewhat better, although she gets short of breath when she walks around. OBJECTIVE: VITAL SIGNS: Temperature 97.9, pulse 111, blood pressure 137/81, and O2 saturation 92% on 2 L. HEENT: Unremarkable. NECK: No adenopathy or JVD. CHEST: Fairly clear anteriorly. CARDIAC: S1 and S2. Regular. ABDOMEN: Soft. EXTREMITIES: No edema. LABORATORY DATA: CT from the was reviewed. ASSESSMENT: Atypical pneumonia, slowly improving on current therapy. PLAN: 1. Increase activity as tolerated. Continue antibiotics. 2. Decrease steroid dose. Job ID: [id number]
--- NOTE | 2019-02-18 11:52 | PRG ---
DATE OF SERVICE: 02/16/2019 SUBJECTIVE: This is a 43-year-old female with chronic alcohol abuse, hospitalized because of dyspnea. The patient is found to have some bilateral basilar densities. She is also found to have some irregular, nodular liver suggestive of possible chronic liver disease. The patient is protocol for alcohol withdrawal. She is actually feeling better. She is not dyspneic, but she has tremulousness. No nausea or vomiting. No abdominal pain. Abdominal sonogram shows what appears to be mostly fatty liver and possibly liver cirrhosis. no ascites. OBJECTIVE: GENERAL: Appears comfortable. No distress. VITAL SIGNS: Very stable. Her pulse is 110, blood pressure . CARDIOVASCULAR: First and second heart sounds are normal. ABDOMEN: Soft to palpate, no organomegaly. CLINICAL IMPRESSION: 1. Chronic alcoholic liver disease, most likely liver cirrhosis. 2. Anemia, macrocytic, most likely . 3. Anxiety. RECOMMENDATIONS: 1. Continue alcohol withdrawal. 2. Continue . Job ID: [id number]
[2019-02-18] MEDS: Nicotine 14 MG PATCH TD SCH (18:18)
--- NOTE | 2019-02-18 20:57 | PDOC.HOSPP ---
- Subjective Encounter Date: 02/18/19 Encounter Time: 09:00 Subjective: pt up walking around, got a bit sob - Objective Vital Signs & Weight: Vital Signs (12 hours) Temp Pulse Resp BP BP BP Pulse Ox 02/18/19 18:36 123 H 20 87 L 02/18/19 16:45 121/68 02/18/19 15:50 98.6 F 115 H 20 121/68 92 L 02/18/19 14:54 112 H 20 91 L 02/18/19 12:29 111/57 L 02/18/19 12:05 98.0 F 111 H 16 111/57 L 95 02/18/19 11:05 110 H 20 96 02/18/19 09:10 111 H 137/81 Weight Admit Weight 141 lb 3.2 oz Weight 143 lb 1.6 oz I&O: 02/17/19 02/18/19 02/19/19 06:59 06:59 06:59 Intake Total 240 502.5 1000 Balance 240 502.5 1000 Result Diagrams: 02/18/19 04:33 02/18/19 04:33 Hospitalist ROS - Review of Systems Respiratory: reports: shortness of breath Cardiovascular: denies: chest pain, palpitations, orthopnea, paroxysmal noc. dyspnea, edema, light headedness, other Gastrointestinal: denies: nausea, vomiting, abdominal pain, diarrhea, constipation, melena, hematochezia, other - Medication Medications: Active Medications Generic Name Dose Route Start Last Admin Trade Name Freq PRN Reason Stop Dose Admin Albuterol/Ipratropium 3 ml 02/15/19 02:30 02/18/19 18:36 Duoneb NEB 3 ml [id number] MK Administration Famotidine 20 mg 02/15/19 09:00 02/18/19 09:09 Pepcid PO 20 mg BID MK Administration Fenofibrate 48 mg 02/16/19 09:46 02/18/19 09:10 Tricor PO 48 mg DAILY MK Administration Fluoxetine HCl 20 mg 02/16/19 09:00 02/18/19 09:10 Prozac PO 20 mg DAILY MK Administration Folic Acid 1 mg 02/15/19 09:00 02/18/19 09:09 Folvite PO 1 mg DAILY MK Administration Iron/Minerals/Multivitamins 1 tab 02/15/19 09:00 02/18/19 09:10 Theragran M PO 1 tab DAILY MK Administration Levofloxacin 750 mg 02/15/19 06:00 02/18/19 06:15 Levaquin PO 750 mg 0600 MK Administration Lisinopril 2.5 mg 02/16/19 09:00 02/18/19 09:10 Zestril PO 2.5 mg DAILY MK Administration Lorazepam 1 mg 02/17/19 14:40 02/18/19 15:17 Ativan SLOW IVP 1 mg Q6H PRN Administration Anxiety/Agitation Methylprednisolone Sodium Succinate 20 mg 02/18/19 10:43 02/18/19 18:21 Solu-Medrol IVP 20 mg Q6HR MK Administration Mometasone Furoate/Formoterol Fumar 2 puff 02/15/19 06:30 02/18/19 18:40 Dulera 200 Mcg/5 Mcg Inhaler INH 2 puff BID-RT MK Administration Nicotine 14 mg 02/16/19 18:00 02/18/19 18:18 Nicoderm Patch TD 14 mg Q24HR MK Administration Pantoprazole Sodium 40 mg 02/18/19 09:00 02/18/19 09:10 Protonix PO 40 mg DAILY MK Administration Thiamine HCl 100 mg 02/15/19 09:00 02/18/19 09:10 Thiamine PO 100 mg DAILY MK Administration Zolpidem Tartrate 5 mg 02/15/19 21:00 02/17/19 21:42 Ambien PO 5 mg HS MK Administration - Exam Neck: negative: supple, symmetric, no JVD, no thyromegaly, no lymphadenopathy, no carotid bruit, JVD Heart: negative: RRR, no murmur, no gallops, no rubs, normal peripheral pulses, irregular, diminshed peripheral pulses, murmur present, II/IV, III/IV Respiratory: negative: CTAB, no wheezes, no rales, no ronchi, normal chest expansion, no tachypnea, normal percussion, rales, rhonchi, tachypneic, wheezes Hosp A/P (1) SOB (shortness of breath) Code(s): R06.02 - SHORTNESS OF BREATH Status: Acute (2) Alcohol abuse Code(s): F10.10 - ALCOHOL ABUSE, UNCOMPLICATED Status: Acute (3) Elevated LFTs Code(s): R94.5 - ABNORMAL RESULTS OF LIVER FUNCTION STUDIES Status: Acute (4) Macrocytic anemia Code(s): D53.9 - NUTRITIONAL ANEMIA, UNSPECIFIED Status: Acute (5) Hypertriglyceridemia Code(s): E78.1 - PURE HYPERGLYCERIDEMIA Status: Acute (6) Esophagitis Code(s): K20.9 - ESOPHAGITIS, UNSPECIFIED Status: Acute (7) Gastric ulcer Code(s): K25.9 - GASTRIC ULCER, UNSP ACUTE OR CHRONIC, W/O HEMOR OR PERF Status: Acute - Plan pt is a smoker and drinks alcohol but has never been dx with copd. Her from cirrhosis of liver per pt. will get a ruq ultrasound. Her lfts are elvevated due to her alcohol abuse. she use to drink a bottle of vodka a day. Now she drinks a bottle of wine daily. she is on ASE protocol. 02/17 s/p egd which indicated gastic ulcer and esophagitis. will continue Pepcid. autoimmune work up sent per pulmonary. will check lab work in am. will change ativan to q6 prn for withdrawal. 02/18 pt gets tachycardia on ambulation, will monitor. will continue ativan q6h.
[2019-02-18] MEDS: Gabapentin 300 MG CAP PO SCH (21:09)
[2019-02-18] MEDS: Zolpidem Tartrate 5 MG TAB PO SCH (21:09)
[2019-02-19] MEDS: methylPREDNISolone Sod Succ 40 MG VIAL IVP SCH ×5 (00:16→23:30)
[2019-02-19] MEDS: Benzonatate 100 MG CAP PO PRN ×2 (00:18→21:07)
[2019-02-19] MEDS: Mometasone/Formoterol 120 PUFF INHALER INH SCH ×2 (07:24→19:24)
[2019-02-19] MEDS: Lorazepam 2 MG/ML VIAL SLOW IVP PRN ×3 (08:07→21:03)
[2019-02-19] MEDS: Multivitamin W/ Minerals 1 TAB PO SCH (08:08)
[2019-02-19] MEDS: Famotidine 20 MG TAB PO SCH ×2 (08:08→20:14)
[2019-02-19] MEDS: Folic Acid 1 MG TAB PO SCH (08:08)
[2019-02-19] MEDS: Gabapentin 300 MG CAP PO SCH ×2 (08:08→20:14)
[2019-02-19] MEDS: Lisinopril 2.5 MG TAB PO SCH (08:08)
[2019-02-19] MEDS: Fenofibrate 48 MG TAB PO SCH (08:08)
[2019-02-19] MEDS: FLUoxetine HCl 20 MG CAP PO SCH (08:08)
[2019-02-19] MEDS: Thiamine 100 MG TAB PO SCH (08:09)
--- NOTE | 2019-02-19 09:27 | PRG ---
DATE OF SERVICE: 02/19/2019 SUBJECTIVE: She indicates that she feels better than she did yesterday. She is beginning to get up more and walk. Her O2 saturation was in the 80s this morning on room air. OBJECTIVE: VITAL SIGNS: Temperature is 98.7, pulse 111, blood pressure 118/59, O2 saturation 96% on 2 L, and respiratory rate 20. HEENT: Unremarkable. NECK: No JVD. LUNGS: She has inspiratory crackles diffusely throughout. CARDIAC: S1 and S2, regular. ABDOMEN: Soft and nontender. EXTREMITIES: No edema. ASSESSMENT: Atypical pneumonia. PLAN: Continue antibiotics, steroids, and nebulization therapy. We are still waiting for results of some autoimmune titers and hypersensitivity pneumonitis panel. Her discharge to home will be predicated on her hypoxemia. The patient is safe transfer to a non-monitored bed. Job ID: [id number]
[2019-02-19 10:15] LABS: #Lymphocytes 1.1 thou/uL (1.20-3.40); #Monocytes 0.5 thou/uL (0.11-0.59); #Neutrophils 7.9 thou/uL (1.40-6.50); %Eosinophils 0.3 % (0.0-10.0); %Lymphocytes 11.2 % (21.0-51.0); %Monocytes 4.9 % (0.0-10.0); %Neutrophils 83.6 % (42.0-75.0); Hemoglobin 8.9 g/dL (12.0-16.0); Mean Corpuscular HGB CONC 32.9 g/dL (32.0-36.0); Mean Platelet Volume 7.9 fL (7.4-10.4); Platelet Count 301 thou/uL (130-400); RBC Distribution Width 16.6 % (11.5-14.5); Red Blood Cell (RBC) Count 2.53 mill/uL (4.20-5.40); White Blood Cell (WBC) Count 9.5 thou/uL (4.8-10.8)
[2019-02-19 10:29] LABS: Anion Gap 12 mmol/L (10-20); BUN (Urea Nitrogen) 11 mg/dL (7.0-18.7); Calc. Creatinine Clearance 130 mL/min (70-130); Calcium 8.9 mg/dL (7.8-10.44); Carbon Dioxide 26 mmol/L (22-29); Chloride 100 mmol/L (98-107); Estimated GFR-MDRD Greater than 90; Glucose 169 mg/dL (70-105); Potassium 4.3 mmol/L (3.5-5.1); Sodium 134 mmol/L (136-145)
[2019-02-19 13:15] VITALS: BMI 26.4
[2019-02-19 16:09] LABS: Cytoplasmic (C-ANCA) <1:20 titer (Neg:<1:20); Myeloperoxidase AutoAbs <9.0 U/mL (0.0-9.0); Perinuclear (P-ANCA) <1:20 titer (Neg:<1:20); Proteinase-3 AutoAbs Less than 3.5 U/mL (0.0-3.5)
[2019-02-19] MEDS: Nicotine 14 MG PATCH TD SCH (17:12)
[2019-02-19] MEDS: Zolpidem Tartrate 5 MG TAB PO SCH (20:14)
[2019-02-19] MEDS: diphenhydrAMINE 25 MG CAP PO PRN (20:14)
[2019-02-20] MEDS: methylPREDNISolone Sod Succ 40 MG VIAL IVP SCH (05:32)
[2019-02-20] MEDS: diphenhydrAMINE 25 MG CAP PO PRN ×2 (05:35→19:53)
[2019-02-20] MEDS: Lorazepam 2 MG/ML VIAL SLOW IVP PRN ×3 (05:38→19:54)
[2019-02-20] MEDS: Mometasone/Formoterol 120 PUFF INHALER INH SCH ×2 (06:57→19:00)
--- NOTE | 2019-02-20 08:02 | PDOC.HOSPP ---
- Subjective Encounter Date: 02/19/19 Encounter Time: 11:55 Subjective: pt up walking feels well - Objective Vital Signs & Weight: Vital Signs (12 hours) Temp Pulse Resp BP Pulse Ox 02/20/19 06:55 97 14 96 02/20/19 04:00 98.4 F 106 H 18 127/78 97 02/20/19 02:16 16 02/19/19 22:25 95 12 95 Weight Admit Weight 141 lb 3.2 oz Weight 144 lb 6.4 oz I&O: 02/19/19 02/20/19 02/21/19 06:59 06:59 06:59 Intake Total 1621 Balance 1621 Result Diagrams: 02/19/19 09:54 02/19/19 09:49 Hospitalist ROS - Review of Systems Respiratory: denies: cough, dry, shortness of breath, hemoptysis, SOB with excertion, pleuritic pain, sputum, wheezing, other Cardiovascular: denies: chest pain, palpitations, orthopnea, paroxysmal noc. dyspnea, edema, light headedness, other Gastrointestinal: denies: nausea, vomiting, abdominal pain, diarrhea, constipation, melena, hematochezia, other - Medication Medications: Active Medications Generic Name Dose Route Start Last Admin Trade Name Freq PRN Reason Stop Dose Admin Albuterol/Ipratropium 3 ml 02/15/19 02:30 02/20/19 06:55 Duoneb NEB 3 ml [id number] MK Administration Benzonatate 100 mg 02/14/19 23:12 02/19/19 21:07 Tessalon PO 100 mg Q6H PRN Administration Cough Diphenhydramine HCl 25 mg 02/19/19 17:35 02/20/19 05:35 Benadryl PO 25 mg Q6H PRN Administration Itching & Insomnia Famotidine 20 mg 02/15/19 09:00 02/19/19 20:14 Pepcid PO 20 mg BID MK Administration Fenofibrate 48 mg 02/16/19 09:46 02/19/19 08:08 Tricor PO 48 mg DAILY MK Administration Fluoxetine HCl 20 mg 02/16/19 09:00 02/19/19 08:08 Prozac PO 20 mg DAILY MK Administration Folic Acid 1 mg 02/15/19 09:00 02/19/19 08:08 Folvite PO 1 mg DAILY MK Administration Gabapentin 300 mg 02/18/19 21:00 02/19/19 20:14 Neurontin PO 300 mg BID MK Administration Iron/Minerals/Multivitamins 1 tab 02/15/19 09:00 02/19/19 08:08 Theragran M PO 1 tab DAILY MK Administration Levofloxacin 750 mg 02/15/19 06:00 02/20/19 05:32 Levaquin PO 750 mg 0600 MK Administration Lisinopril 2.5 mg 02/16/19 09:00 02/19/19 08:08 Zestril PO 2.5 mg DAILY MK Administration Lorazepam 1 mg 02/17/19 14:40 02/20/19 05:38 Ativan SLOW IVP 1 mg Q6H PRN Administration Anxiety/Agitation Methylprednisolone Sodium Succinate 20 mg 02/18/19 10:43 02/20/19 05:32 Solu-Medrol IVP 20 mg Q6HR MK Administration Mometasone Furoate/Formoterol Fumar 2 puff 02/15/19 06:30 02/20/19 06:57 Dulera 200 Mcg/5 Mcg Inhaler INH 2 puff BID-RT MK Administration Nicotine 14 mg 02/16/19 18:00 02/19/19 17:12 Nicoderm Patch TD 14 mg Q24HR MK Administration Pantoprazole Sodium 40 mg 02/18/19 09:00 02/19/19 08:08 Protonix PO 40 mg DAILY MK Administration Sodium Chloride 10 ml 02/18/19 21:00 02/19/19 20:14 Flush - Normal Saline IVF 10 ml Q12HR MK Administration Sodium Chloride 10 ml 02/18/19 09:57 02/19/19 17:14 Flush - Normal Saline IVF 10 ml PRN PRN Administration Saline Flush Thiamine HCl 100 mg 02/15/19 09:00 02/19/19 08:09 Thiamine PO 100 mg DAILY MK Administration Zolpidem Tartrate 5 mg 02/15/19 21:00 02/19/19 20:14 Ambien PO 5 mg HS MK Administration - Exam Heart: negative: RRR, no murmur, no gallops, no rubs, normal peripheral pulses, irregular, diminshed peripheral pulses, murmur present, II/IV, III/IV Respiratory: negative: CTAB, no wheezes, no rales, no ronchi, normal chest expansion, no tachypnea, normal percussion, rales, rhonchi, tachypneic, wheezes Gastrointestinal: negative: soft, non-tender, non-distended, normal bowel sounds , no palpable masses, no hepatomegaly, no splenomegaly, no bruit, no guarding, no rigidity, tender to palpation, distended, diminished bowl sounds, voluntary guarding Hosp A/P (1) SOB (shortness of breath) Code(s): R06.02 - SHORTNESS OF BREATH Status: Acute (2) Alcohol abuse Code(s): F10.10 - ALCOHOL ABUSE, UNCOMPLICATED Status: Acute (3) Elevated LFTs Code(s): R94.5 - ABNORMAL RESULTS OF LIVER FUNCTION STUDIES Status: Acute (4) Macrocytic anemia Code(s): D53.9 - NUTRITIONAL ANEMIA, UNSPECIFIED Status: Acute (5) Hypertriglyceridemia Code(s): E78.1 - PURE HYPERGLYCERIDEMIA Status: Acute (6) Esophagitis Code(s): K20.9 - ESOPHAGITIS, UNSPECIFIED Status: Acute (7) Gastric ulcer Code(s): K25.9 - GASTRIC ULCER, UNSP ACUTE OR CHRONIC, W/O HEMOR OR PERF Status: Acute - Plan pt is a smoker and drinks alcohol but has never been dx with copd. Her from cirrhosis of liver per pt. will get a ruq ultrasound. Her lfts are elvevated due to her alcohol abuse. she use to drink a bottle of vodka a day. Now she drinks a bottle of wine daily. she is on ASE protocol. 02/17 s/p egd which indicated gastic ulcer and esophagitis. will continue Pepcid. autoimmune work up sent per pulmonary. will check lab work in am. will change ativan to q6 prn for withdrawal. 02/18 pt gets tachycardia on ambulation, will monitor. will continue ativan q6h. 02/19 will change her ativan to q8h. her ANCA is negative. possible discharge in 24-48hr
[2019-02-20] MEDS: Lisinopril 2.5 MG TAB PO SCH (08:19)
[2019-02-20] MEDS: Famotidine 20 MG TAB PO SCH ×2 (08:19→19:53)
[2019-02-20] MEDS: Folic Acid 1 MG TAB PO SCH (08:20)
[2019-02-20] MEDS: Thiamine 100 MG TAB PO SCH (08:20)
[2019-02-20] MEDS: Fenofibrate 48 MG TAB PO SCH (08:20)
[2019-02-20] MEDS: Gabapentin 300 MG CAP PO SCH ×2 (08:20→19:53)
[2019-02-20] MEDS: FLUoxetine HCl 20 MG CAP PO SCH (08:20)
[2019-02-20] MEDS: Multivitamin W/ Minerals 1 TAB PO SCH (08:20)
[2019-02-20] MEDS: predniSONE 20 MG TAB PO SCH ×2 (09:02→19:53)
--- NOTE | 2019-02-20 09:04 | PRG ---
DATE OF SERVICE: 02/20/2019 SUBJECTIVE: The patient desperately wants to go home, but apparently still desaturating when she walks. OBJECTIVE: VITAL SIGNS: On exam, temperature is 98.4, pulse 97, blood pressure 127/78, and O2 saturation 96% on 2 L. HEENT: Unremarkable. NECK: No adenopathy or JVD. LUNGS: Few crackles in the bases, but overall this is much clearer than 2 days ago. CARDIAC: S1 and S2. Regular. ABDOMEN: Soft. EXTREMITIES: No edema. ASSESSMENT: 1. Atypical pneumonia, which is improving. 2. Hypoxemia secondary to pneumonia. PLAN: She is probably near the point where she can be discharged. The main issue is going to be her hypoxia. If she goes home today, she will need supplemental oxygen. There may be some difficulties with setting this up given that she lives out in [place] and [facility] is approaching. The alternative is to wait a day or two and see if her hypoxemia resolves. If she does go home, she needs to complete a total of 7 to 10 days of antibiotics and approximately 2 weeks to taper steroids. Job ID: [id number]
[2019-02-20] MEDS ORDERED: Furosemide 20 MG/2 ML VIAL SLOW IVP SCH (10:15)
--- NOTE | 2019-02-20 13:29 | PDOC.HOSPP ---
- Subjective Encounter Date: 02/20/19 Encounter Time: 11:45 Subjective: pt up in bed no complains - Objective Vital Signs & Weight: Vital Signs (12 hours) Temp Pulse Resp BP BP BP Pulse Ox 02/20/19 12:41 98.8 F 100 18 104/63 96 02/20/19 10:16 85 16 95 02/20/19 08:30 95 02/20/19 08:27 98.3 F 107 H 20 109/69 95 02/20/19 08:19 97 127/78 02/20/19 06:55 97 14 96 02/20/19 04:00 98.4 F 106 H 18 127/78 97 02/20/19 02:16 16 Weight Admit Weight 141 lb 3.2 oz Weight 144 lb 6.4 oz I&O: 02/19/19 02/20/19 02/21/19 06:59 06:59 06:59 Intake Total 1621 Balance 1621 Result Diagrams: 02/19/19 09:54 02/19/19 09:49 Hospitalist ROS - Review of Systems Respiratory: denies: cough, dry, shortness of breath, hemoptysis, SOB with excertion, pleuritic pain, sputum, wheezing, other Cardiovascular: denies: chest pain, palpitations, orthopnea, paroxysmal noc. dyspnea, edema, light headedness, other Gastrointestinal: denies: nausea, vomiting, abdominal pain, diarrhea, constipation, melena, hematochezia, other - Medication Medications: Active Medications Generic Name Dose Route Start Last Admin Trade Name Freq PRN Reason Stop Dose Admin Albuterol/Ipratropium 3 ml 02/15/19 02:30 02/20/19 10:16 Duoneb NEB 3 ml [id number] MK Administration Benzonatate 100 mg 02/14/19 23:12 02/19/19 21:07 Tessalon PO 100 mg Q6H PRN Administration Cough Diphenhydramine HCl 25 mg 02/19/19 17:35 02/20/19 05:35 Benadryl PO 25 mg Q6H PRN Administration Itching & Insomnia Famotidine 20 mg 02/15/19 09:00 02/20/19 08:19 Pepcid PO 20 mg BID MK Administration Fenofibrate 48 mg 02/16/19 09:46 02/20/19 08:20 Tricor PO 48 mg DAILY MK Administration Fluoxetine HCl 20 mg 02/16/19 09:00 02/20/19 08:20 Prozac PO 20 mg DAILY MK Administration Folic Acid 1 mg 02/15/19 09:00 02/20/19 08:20 Folvite PO 1 mg DAILY MK Administration Furosemide 20 mg 02/20/19 10:15 02/20/19 11:20 Lasix SLOW IVP 02/20/19 14:00 20 mg NOW MK Administration Gabapentin 300 mg 02/18/19 21:00 02/20/19 08:20 Neurontin PO 300 mg BID MK Administration Iron/Minerals/Multivitamins 1 tab 02/15/19 09:00 02/20/19 08:20 Theragran M PO 1 tab DAILY MK Administration Levofloxacin 750 mg 02/15/19 06:00 02/20/19 05:32 Levaquin PO 750 mg 0600 MK Administration Lisinopril 2.5 mg 02/16/19 09:00 02/20/19 08:19 Zestril PO 2.5 mg DAILY MK Administration Lorazepam 1 mg 02/17/19 14:40 02/20/19 11:20 Ativan SLOW IVP 1 mg Q6H PRN Administration Anxiety/Agitation Mometasone Furoate/Formoterol Fumar 2 puff 02/15/19 06:30 02/20/19 06:57 Dulera 200 Mcg/5 Mcg Inhaler INH 2 puff BID-RT MK Administration Nicotine 14 mg 02/16/19 18:00 02/19/19 17:12 Nicoderm Patch TD 14 mg Q24HR MK Administration Pantoprazole Sodium 40 mg 02/18/19 09:00 02/20/19 08:20 Protonix PO 40 mg DAILY MK Administration Prednisone 20 mg 02/20/19 09:00 02/20/19 09:02 Prednisone PO 20 mg BID MK Administration Sodium Chloride 10 ml 02/18/19 21:00 02/20/19 08:21 Flush - Normal Saline IVF 10 ml Q12HR MK Administration Sodium Chloride 10 ml 02/18/19 09:57 02/20/19 11:21 Flush - Normal Saline IVF 10 ml PRN PRN Administration Saline Flush Thiamine HCl 100 mg 02/15/19 09:00 02/20/19 08:20 Thiamine PO 100 mg DAILY MK Administration Zolpidem Tartrate 5 mg 02/15/19 21:00 02/19/19 20:14 Ambien PO 5 mg HS MK Administration - Exam Heart: negative: RRR, no murmur, no gallops, no rubs, normal peripheral pulses, irregular, diminshed peripheral pulses, murmur present, II/IV, III/IV Respiratory: negative: CTAB, no wheezes, no rales, no ronchi, normal chest expansion, no tachypnea, normal percussion, rales, rhonchi, tachypneic, wheezes Gastrointestinal: negative: soft, non-tender, non-distended, normal bowel sounds , no palpable masses, no hepatomegaly, no splenomegaly, no bruit, no guarding, no rigidity, tender to palpation, distended, diminished bowl sounds, voluntary guarding Hosp A/P (1) SOB (shortness of breath) Code(s): R06.02 - SHORTNESS OF BREATH Status: Acute (2) Alcohol abuse Code(s): F10.10 - ALCOHOL ABUSE, UNCOMPLICATED Status: Acute (3) Elevated LFTs Code(s): R94.5 - ABNORMAL RESULTS OF LIVER FUNCTION STUDIES Status: Acute (4) Macrocytic anemia Code(s): D53.9 - NUTRITIONAL ANEMIA, UNSPECIFIED Status: Acute (5) Hypertriglyceridemia Code(s): E78.1 - PURE HYPERGLYCERIDEMIA Status: Acute (6) Esophagitis Code(s): K20.9 - ESOPHAGITIS, UNSPECIFIED Status: Acute (7) Gastric ulcer Code(s): K25.9 - GASTRIC ULCER, UNSP ACUTE OR CHRONIC, W/O HEMOR OR PERF Status: Acute - Plan pt is a smoker and drinks alcohol but has never been dx with copd. Her from cirrhosis of liver per pt. will get a ruq ultrasound. Her lfts are elvevated due to her alcohol abuse. she use to drink a bottle of vodka a day. Now she drinks a bottle of wine daily. she is on ASE protocol. 02/17 s/p egd which indicated gastic ulcer and esophagitis. will continue Pepcid. autoimmune work up sent per pulmonary. will check lab work in am. will change ativan to q6 prn for withdrawal. 02/18 pt gets tachycardia on ambulation, will monitor. will continue ativan q6h. 02/19 will change her ativan to q8h. her ANCA is negative. possible discharge in 24-48hr 02/20 pt will need oxygen on discharge, she has no insurance. her autoimmune workup was negative.
[2019-02-20] MEDS: Nicotine 14 MG PATCH TD SCH (17:31)
[2019-02-20] MEDS: Zolpidem Tartrate 5 MG TAB PO SCH (19:54)
[2019-02-21] MEDS: Lorazepam 2 MG/ML VIAL SLOW IVP PRN ×3 (05:48→20:14)
[2019-02-21] MEDS: diphenhydrAMINE 25 MG CAP PO PRN ×3 (05:48→20:14)
[2019-02-21] MEDS: Mometasone/Formoterol 120 PUFF INHALER INH SCH ×2 (06:34→19:00)
[2019-02-21] MEDS: Folic Acid 1 MG TAB PO SCH (08:20)
[2019-02-21] MEDS: Fenofibrate 48 MG TAB PO SCH (08:21)
[2019-02-21] MEDS: Multivitamin W/ Minerals 1 TAB PO SCH (08:21)
[2019-02-21] MEDS: FLUoxetine HCl 20 MG CAP PO SCH (08:21)
[2019-02-21] MEDS: Thiamine 100 MG TAB PO SCH (08:21)
[2019-02-21] MEDS: Lisinopril 2.5 MG TAB PO SCH (08:22)
[2019-02-21] MEDS: predniSONE 20 MG TAB PO SCH ×2 (08:22→20:13)
[2019-02-21] MEDS: Gabapentin 300 MG CAP PO SCH ×2 (08:22→20:13)
[2019-02-21] MEDS: Famotidine 20 MG TAB PO SCH ×2 (08:22→20:13)
--- NOTE | 2019-02-21 13:04 | PDOC.HOSPP ---
- Subjective Encounter Date: 02/21/19 Encounter Time: 09:45 Subjective: pt up ambulating - Objective Vital Signs & Weight: Vital Signs (12 hours) Temp Pulse Resp BP BP Pulse Ox 02/21/19 11:20 98.4 F 119 H 18 106/70 94 L 02/21/19 08:00 103/65 96 02/21/19 07:47 98.4 F 117 H 16 103/65 96 02/21/19 06:32 101 H 14 94 L 02/21/19 02:32 12 Weight Admit Weight 141 lb 3.2 oz Weight 144 lb 6.4 oz Result Diagrams: 02/19/19 09:54 02/19/19 09:49 Hospitalist ROS - Review of Systems Cardiovascular: denies: chest pain, palpitations, orthopnea, paroxysmal noc. dyspnea, edema, light headedness, other Gastrointestinal: denies: nausea, vomiting, abdominal pain, diarrhea, constipation, melena, hematochezia, other Genitourinary: denies: dysuria, frequency, incontinence, hematuria, retention, other - Medication Medications: Active Medications Generic Name Dose Route Start Last Admin Trade Name Freq PRN Reason Stop Dose Admin Albuterol/Ipratropium 3 ml 02/15/19 02:30 02/21/19 10:01 Duoneb NEB 3 ml [id number] MK Administration Benzonatate 100 mg 02/14/19 23:12 02/19/19 21:07 Tessalon PO 100 mg Q6H PRN Administration Cough Diphenhydramine HCl 25 mg 02/19/19 17:35 02/21/19 05:48 Benadryl PO 25 mg Q6H PRN Administration Itching & Insomnia Famotidine 20 mg 02/15/19 09:00 02/21/19 08:22 Pepcid PO 20 mg BID MK Administration Fenofibrate 48 mg 02/16/19 09:46 02/21/19 08:21 Tricor PO 48 mg DAILY MK Administration Fluoxetine HCl 20 mg 02/16/19 09:00 02/21/19 08:21 Prozac PO 20 mg DAILY MK Administration Folic Acid 1 mg 02/15/19 09:00 02/21/19 08:20 Folvite PO 1 mg DAILY MK Administration Gabapentin 300 mg 02/18/19 21:00 11/28/19 08:22 Neurontin PO 300 mg BID MK Administration Iron/Minerals/Multivitamins 1 tab 02/15/19 09:00 02/21/19 08:21 Theragran M PO 1 tab DAILY MK Administration Levofloxacin 750 mg 02/15/19 06:00 02/21/19 05:11 Levaquin PO 750 mg 0600 MK Administration Lisinopril 2.5 mg 02/16/19 09:00 02/20/19 08:19 Zestril PO 2.5 mg DAILY MK Administration Lorazepam 1 mg 02/17/19 14:40 02/21/19 05:48 Ativan SLOW IVP 1 mg Q6H PRN Administration Anxiety/Agitation Mometasone Furoate/Formoterol Fumar 2 puff 02/15/19 06:30 02/21/19 06:34 Dulera 200 Mcg/5 Mcg Inhaler INH 2 puff BID-RT MK Administration Nicotine 14 mg 02/16/19 18:00 02/20/19 17:31 Nicoderm Patch TD 14 mg Q24HR MK Administration Pantoprazole Sodium 40 mg 02/18/19 09:00 02/21/19 08:21 Protonix PO 40 mg DAILY MK Administration Prednisone 20 mg 02/20/19 09:00 02/21/19 08:22 Prednisone PO 20 mg BID MK Administration Sodium Chloride 10 ml 02/18/19 21:00 02/21/19 08:26 Flush - Normal Saline IVF 10 ml Q12HR MK Administration Sodium Chloride 10 ml 02/18/19 09:57 02/20/19 11:21 Flush - Normal Saline IVF 10 ml PRN PRN Administration Saline Flush Thiamine HCl 100 mg 02/15/19 09:00 02/21/19 08:21 Thiamine PO 100 mg DAILY MK Administration Zolpidem Tartrate 5 mg 02/15/19 21:00 02/20/19 19:54 Ambien PO 5 mg HS MK Administration - Exam Neck: negative: supple, symmetric, no JVD, no thyromegaly, no lymphadenopathy, no carotid bruit, JVD Heart: negative: RRR, no murmur, no gallops, no rubs, normal peripheral pulses, irregular, diminshed peripheral pulses, murmur present, II/IV, III/IV Respiratory: negative: CTAB, no wheezes, no rales, no ronchi, normal chest expansion, no tachypnea, normal percussion, rales, rhonchi, tachypneic, wheezes Hosp A/P (1) SOB (shortness of breath) Code(s): R06.02 - SHORTNESS OF BREATH Status: Acute (2) Alcohol abuse Code(s): F10.10 - ALCOHOL ABUSE, UNCOMPLICATED Status: Acute (3) Elevated LFTs Code(s): R94.5 - ABNORMAL RESULTS OF LIVER FUNCTION STUDIES Status: Acute (4) Macrocytic anemia Code(s): D53.9 - NUTRITIONAL ANEMIA, UNSPECIFIED Status: Acute (5) Hypertriglyceridemia Code(s): E78.1 - PURE HYPERGLYCERIDEMIA Status: Acute (6) Esophagitis Code(s): K20.9 - ESOPHAGITIS, UNSPECIFIED Status: Acute (7) Gastric ulcer Code(s): K25.9 - GASTRIC ULCER, UNSP ACUTE OR CHRONIC, W/O HEMOR OR PERF Status: Acute - Plan pt is a smoker and drinks alcohol but has never been dx with copd. Her from cirrhosis of liver per pt. will get a ruq ultrasound. Her lfts are elvevated due to her alcohol abuse. she use to drink a bottle of vodka a day. Now she drinks a bottle of wine daily. she is on ASE protocol. 02/17 s/p egd which indicated gastic ulcer and esophagitis. will continue Pepcid. autoimmune work up sent per pulmonary. will check lab work in am. will change ativan to q6 prn for withdrawal. 02/18 pt gets tachycardia on ambulation, will monitor. will continue ativan q6h. 02/19 will change her ativan to q8h. her ANCA is negative. possible discharge in 24-48hr 02/20 pt will need oxygen on discharge, she has no insurance. her autoimmune workup was negative. 02/21 will continue current tx, pt will need home oxygen. I did give her a dose of lasix yest. will ambulate her again sahra to see if she needs oxygen.
--- NOTE | 2019-02-21 16:14 | PRG ---
DATE OF SERVICE: 02/21/2019 SUBJECTIVE: Carol Ozuna says she is feeling better. She says she feels like she is close to being ready to go home. OBJECTIVE: VITAL SIGNS: She is afebrile. Heart rate is 95, respiratory rate is 14, oximetry is 95% on 1 L. It has been documented that she is 94 to 96 on room air as well. Blood pressure 115/74. LUNGS: Distant, clear. HEART: Regular rhythm. ABDOMEN: Soft. LABORATORY DATA: There is no new lab. IMPRESSION: Pneumonia. Hopefully, she will be able to go home in the morning. Now, the room air sats are adequate. She is clinically stable overall. She may benefit from outpatient pulmonary function tests and perhaps even a nebulizer. We will follow. Job ID: [id number]
[2019-02-21] MEDS: Nicotine 14 MG PATCH TD SCH (18:14)
[2019-02-21 19:08] LABS: A. flavus Negative (Neg:<1:1); A. fumigatus Negative (Neg:<1:1); A. niger Negative (Neg:<1:1)
[2019-02-21] MEDS: Zolpidem Tartrate 5 MG TAB PO SCH (20:14)
[2019-02-22] MEDS: diphenhydrAMINE 25 MG CAP PO PRN ×2 (04:19→10:29)
[2019-02-22] MEDS: Lorazepam 2 MG/ML VIAL SLOW IVP PRN ×2 (04:19→10:29)
[2019-02-22 05:25] LABS: #Eosinphils 0.1 thou/uL (0.0-0.7); #Lymphocytes 1.1 thou/uL (1.20-3.40); #Monocytes 0.6 thou/uL (0.11-0.59); #Neutrophils 9.2 thou/uL (1.40-6.50); %Basophils 0.2 % (0.0-1.0); %Eosinophils 0.6 % (0.0-10.0); %Lymphocytes 9.9 % (21.0-51.0); %Monocytes 5.5 % (0.0-10.0); %Neutrophils 83.8 % (42.0-75.0); Hemoglobin 8.9 g/dL (12.0-16.0); Mean Corpuscular HGB CONC 32.8 g/dL (32.0-36.0); Mean Corpuscular Hemoglobin 35.5 pg (27.0-31.0); Mean Platelet Volume 7.8 fL (7.4-10.4); Platelet Count 303 thou/uL (130-400); RBC Distribution Width 16.3 % (11.5-14.5); Red Blood Cell (RBC) Count 2.51 mill/uL (4.20-5.40); White Blood Cell (WBC) Count 10.9 thou/uL (4.8-10.8)
[2019-02-22 05:52] LABS: ALT (SGPT) 334 U/L (8-55); AST (SGOT) 455 U/L (5-34); Albumin 2.9 g/dL (3.5-5.0); Alkaline Phosphatase 163 U/L (40-110); Anion Gap 10 mmol/L (10-20); BUN (Urea Nitrogen) 12 mg/dL (7.0-18.7); Bilirubin, Total 3.3 mg/dL (0.2-1.2); Calc. Creatinine Clearance 126 mL/min (70-130); Calcium 8.8 mg/dL (7.8-10.44); Carbon Dioxide 27 mmol/L (22-29); Chloride 99 mmol/L (98-107); Estimated GFR-MDRD Greater than 90; Globulin 2.6 g/dL (2.4-3.5); Glucose 205 mg/dL (70-105); Potassium 4.4 mmol/L (3.5-5.1); Protein, Total 5.5 g/dL (6.0-8.3); Sodium 132 mmol/L (136-145)
[2019-02-22] MEDS: Mometasone/Formoterol 120 PUFF INHALER INH SCH (06:40)
[2019-02-22 08:23] VITALS: BP 139/81; TEMP 97.5
[2019-02-22] MEDS: Multivitamin W/ Minerals 1 TAB PO SCH (08:33)
[2019-02-22] MEDS: Folic Acid 1 MG TAB PO SCH (08:33)
[2019-02-22] MEDS: Famotidine 20 MG TAB PO SCH (08:33)
[2019-02-22] MEDS: FLUoxetine HCl 20 MG CAP PO SCH (08:33)
[2019-02-22] MEDS: Gabapentin 300 MG CAP PO SCH (08:33)
[2019-02-22] MEDS: Lisinopril 2.5 MG TAB PO SCH (08:33)
[2019-02-22] MEDS: predniSONE 20 MG TAB PO SCH (08:33)
[2019-02-22] MEDS: Thiamine 100 MG TAB PO SCH (08:33)
[2019-02-22] MEDS: Fenofibrate 48 MG TAB PO SCH (08:34)
[2019-02-22 09:09] LABS: Aspergillus fumigatus Negative (Negative); Aureobasidium pullalans IgG Negative (Negative); Micropolyspora faeni Negative (Negative); Pigeon Droppings IgG Negative (Negative); T sacchari Negative (Negative); T vulgaris Negative (Negative)
--- NOTE | 2019-02-22 12:20 | DIS ---
DATE OF ADMISSION: 02/14/2019 DATE OF DISCHARGE: 02/22/2019 PRIMARY DIAGNOSIS: Acute on chronic obstructive pulmonary disease. SECONDARY DIAGNOSES: Transaminitis, EtOH abuse, tobacco abuse, macrocytic anemia, and hypertension. DISCHARGE DIAGNOSES: Pneumoniae, hypertriglyceridemia, esophagitis, gastric ulcer, macrocytic anemia, increased LFTs, and EtOH abuse. [place] MAKEUP ARTIST: Dr. Lindsay. PROCEDURE: Esophagogastroduodenoscopy with biopsy. She has CT angiogram, bronchodilator via nebulizer, IV steroid administration. COURSE OF HOSPITALIZATION: Uncomplicated responded well to management. The patient is clinically stable at this time, being discharged home. DISCHARGE MEDICATIONS: Please see discharge medication reconciliation sheet. The patient is to follow up with her primary care physician. PHYSICAL EXAMINATION: GENERAL: Today, the patient is alert and oriented, in no distress. VITAL SIGNS: Her latest vital signs show a temperature of 97.5, pulse rate 102, respiratory rate 20, and blood pressure 139/81. HEAD AND NECK: Normal. HEART: She has a regular S1 and S2. LUNGS: Show few rhonchi. ABDOMEN: Soft. EXTREMITIES: Limbs show no edema. NEUROLOGIC: She moves all extremities. FOLLOWUP: She is to follow up with her primary care physician and also with Pulmonology. DISCHARGE TIME: 32 minutes. Job ID: [id number]
[2019-02-22 15:38] LABS: ANA Symphony (Qualitative) Negative (Negative); ANA Symphony (Quantitative) 0.1 Ratio (< 0.7 Negative); dsDNA IgG Antibody Less than 0.5 IU/mL (<10 Negative)
== END 2019-02-22 13:24 | disposition home or self-care (01) | DRG 190 ==
LOC: ERS 16:08 → 2NO 18:49 → T4-A 02-19 13:58
PROVIDERS: ADMIT Internal Medicine; ATTEND Internal Medicine
PROC: 0DB78ZX Excision of Stomach, Pylorus, Via Natural or Artificial Opening Endoscopic, Diagnostic (ICD-10-PCS; principal; 2019-02-17)
DX: J44.1 Chronic obstructive pulmonary disease with (acute) exacerbation (principal); J18.9 Pneumonia, unspecified organism; G47.00 Insomnia, unspecified; J44.0 Chronic obstructive pulmonary disease with (acute) lower respiratory infection; F32.9 Major depressive disorder, single episode, unspecified; D53.9 Nutritional anemia, unspecified; I10 Essential (primary) hypertension; F17.210 Nicotine dependence, cigarettes, uncomplicated; R74.0 Nonspecific elevation of levels of transaminase and lactic acid dehydrogenase [LDH]; K21.9 Gastro-esophageal reflux disease without esophagitis; F41.9 Anxiety disorder, unspecified; E78.1 Pure hyperglyceridemia; F10.20 Alcohol dependence, uncomplicated; K20.9 Esophagitis, unspecified; K25.9 Gastric ulcer, unspecified as acute or chronic, without hemorrhage or perforation; J98.01 Acute bronchospasm; R09.02 Hypoxemia; Z79.899 Other long term (current) drug therapy; Z98.51 Tubal ligation status
CPT/HCPCS: 36415; 71275; 76705; 80048; 80053; 80061; 80074; 81001; 82274; 82607; 82728; 82746; 83010; 83520; 83540; 83735; 84443; 84484; 85007; 85025; 85027; 85610; 85652; 86038; 86225; 86256; 86331; 86602; 86606; 86671; 87389; 87804; 88305; 88312; 94640; J1940; J2001; J2060; J2250; J2704; J2920; J7512; J7620; Q0163; Q9967

== ENCOUNTER 2019-03-25 11:05 | Observation (INO) | payer SELFPAY ==
[2019-03-25 13:07] LABS: #Lymphocytes 1.3 thou/uL (1.20-3.40); #Monocytes 0.7 thou/uL (0.11-0.59); #Neutrophils 7.8 thou/uL (1.40-6.50); %Basophils 0.3 % (0.0-1.0); %Eosinophils 0.5 % (0.0-10.0); %Lymphocytes 13.6 % (21.0-51.0); %Monocytes 6.6 % (0.0-10.0); Hemoglobin 11.9 g/dL (12.0-16.0); Mean Corpuscular HGB CONC 32.2 g/dL (32.0-36.0); Mean Corpuscular Hemoglobin 34.4 pg (27.0-31.0); Mean Platelet Volume 8.4 fL (7.4-10.4); Platelet Count 186 thou/uL (130-400); RBC Distribution Width 13.7 % (11.5-14.5); Red Blood Cell (RBC) Count 3.47 mill/uL (4.20-5.40); White Blood Cell (WBC) Count 9.9 thou/uL (4.8-10.8)
[2019-03-25 13:10] LABS: INR-International Normal Ratio 1.2; PTT 35.9 SEC (22.9-36.1); Prothrombin Time 15.1 SEC (12.0-14.7)
[2019-03-25 13:35] LABS: ALT (SGPT) 39 U/L (8-55); AST (SGOT) 208 U/L (5-34); Alkaline Phosphatase 316 U/L (40-110); Anion Gap 11 mmol/L (10-20); BUN (Urea Nitrogen) 6 mg/dL (7.0-18.7); Bilirubin, Total 3.6 mg/dL (0.2-1.2); CK (CPK) 23 U/L (29-168); Calc. Creatinine Clearance 0 mL/min (70-130); Calcium 7.5 mg/dL (7.8-10.44); Carbon Dioxide 23 mmol/L (22-29); Chloride 102 mmol/L (98-107); Estimated GFR-MDRD Greater than 90; Globulin 3.2 g/dL (2.4-3.5); Glucose 155 mg/dL (70-105); Potassium 3.1 mmol/L (3.5-5.1); Protein, Total 5.2 g/dL (6.0-8.3); Sodium 133 mmol/L (136-145)
--- NOTE | 2019-03-25 13:57 | RAD ---
EXAM: Single view of the chest HISTORY: Dyspnea COMPARISON: None FINDINGS: Single view of the chest shows a normal sized cardiomediastinal silhouette. There is blunti ng of the right costophrenic angle likely secondary to small pleural effusion. Adjacent atelectasis is seen. The bones are unremarkable. IMPRESSION: Small right pleural effusion with adjacent atelectasis.
[2019-03-25] MEDS ORDERED: Morphine 4 MG/ML VIAL ONE (14:18)
[2019-03-25] MEDS ORDERED: Ondansetron PF 4 MG/2 ML Vial ONE (14:18)
--- NOTE | 2019-03-25 15:13 | CT ---
CT Abdomen Pelvis W Con: 03/25/2019 2:15 PM CLINICAL INFORMATION: Abdominal distention and pain for one week COMPARISON: None. TECHNIQUE: Multiple contiguous axial images were obtained and a CT of the abdomen and pelvis with IV contrast. C oronal and sagittal reformats were performed. FINDINGS: Lower Chest: Bibasilar atelectasis with trace left pleural effusion. Abdomen: Liver: Slightly heterogeneous enhancement. There is a small amount of ascites adjacent to the liver. Bile Ducts: Normal caliber. Gallbladder: No calcified gallstones. Normal caliber wall. Pancreas: within normal limits. Spleen: Mildly enlarged measuring 15.2 cm in size. Adrenals: within normal limits. Kidneys: within normal limits. Pelvis: Reproductive Organs: 3.8 cm hypodensity likely resents a fibroid. Ureters: within normal limits. Bladder: within normal limits. Peritoneum: Small to moderate ascites in the abdomen and pelvis. Bowel: Normal caliber. Mesentery and Retroperitoneum: No enlarged mesenteric or retroperitoneal lymph nodes. Vessels: Normal. Abdominal Wall: Diffuse soft tissue anasarca. Bones: Within normal limits IMPRESSION: 1. Heterogeneous enhancement liver could be secondary to hepatitis. 2. Mild splenomegaly 3. Small to moderate ascites 4. Uterine fibroid
[2019-03-25] MEDS ORDERED: Senokot S 8.6-50 MG TAB PO PRN (17:24)
[2019-03-25] MEDS ORDERED: Potassium Chloride 20 MEQ TAB PO SCH (19:15)
[2019-03-25] MEDS ORDERED: Morphine 2 MG/ML SYRINGE SLOW IVP PRN (19:30)
[2019-03-25 19:43] VITALS: BMI 26.7
[2019-03-25] MEDS: cefTRIAXone\\ROCEPHIN 2 GM in Sodium Chloride 0.9% 100 ML IVPB SCH (20:04)
--- NOTE | 2019-03-25 20:07 | HP ---
PRIMARY CARE PHYSICIAN: Dr. Escalera in [place]. CHIEF COMPLAINT: Abdominal pain. HISTORY OF PRESENT ILLNESS: Ms. Ozuna is a very pleasant 43-year-old female who reported to the emergency room today for evaluation of increasing abdominal distention x1 week, sharp pain in the upper abdomen, onset of this past with shortness of breath. She reports that she has had some distention over the last month, has increasingly gotten worse to the point where she feels like she can bend over, has increasing pain, swelling, tenderness, cannot pick and shovel worker her grandchildren, and has had swelling in her feet and legs. Reports that she cannot stand very long. The patient was recently diagnosed with cirrhosis due to alcohol abuse around [facility]. Reports that she has not been able to see a GI doctor and did see Dr. Lindsay. The patient had a CT scan while done in the emergency room with impression heterogeneous enhancement of liver, which may be secondary to hepatitis, mild splenomegaly, a [id number] ascites, uterine fibroid. The patient's laboratory values; platelet count 186, white blood cell count 9.9, hemoglobin 11.9, and hematocrit is 37. PT 15.1, INR is 1.2, and APTT 35.9. Chemistry with sodium is 133, potassium 3.1, BUN 6, creatinine 0.50, estimated GFR greater than 90, glucose 155, calcium 7.5, bilirubin 3.6, AST 208, ALT 39, and alkaline phosphatase 316. CK 23, troponin undetectable. BNP 51. Protein 5.2, albumin 2.0, lipase 15. The patient is somewhat in some pain distress, is quite distended. Fluid wave is present. The patient will be admitted for possible paracentesis evaluation by the GI Team. Consult has been placed. REVIEW OF SYSTEMS: CONSTITUTIONAL: The patient denies chills or fever. Denies upper respiratory. Denies chest pain or palpitations. Does report some shortness of breath. Does report abdominal distention, upper abdominal pain, and constipation. Does report some lower limb edema. All systems are reviewed and are negative unless mentioned in the HPI. PAST MEDICAL HISTORY: New diagnosis of cirrhosis, hypertension, recently diagnosed with pneumonia, reports that is improved. PAST SURGICAL HISTORY: Tubal ligation, left arm wound debridement. PSYCHIATRIC HISTORY: Depression. SOCIAL HISTORY: She is a half a pack a day smoker. Denies any alcohol current use, reports that she was abused alcohol until the admission in January and reports that she has not had any since that time. KNOWN ALLERGIES: None. MEDICATIONS: 1. Fluoxetine 10 mg p.o. once a day. 2. Ambien 5 mg p.o. once a day. PHYSICAL EXAMINATION: VITAL SIGNS: Blood pressure 120/76, pulse is 113, respiratory rate is 18, and PO2 sats are 96% on room air. CONSTITUTIONAL: The patient appears in no apparent distress. She is in some pain discomfort. She is alert and oriented to person, place, and time. HEENT: Head is atraumatic and normocephalic. Eyes, normal. Eyelids, normal to inspection. Pupils are equal, round, and reactive to light. She has some icteric sclerae. ENT; mucous membranes are moist. Mouth exam is normal. NECK: Normal range of motion. Trachea is midline. RESPIRATORY/CHEST: Breath sounds are clear. There is no wheezing. CARDIOVASCULAR: Regular rate and rhythm. Heart sounds are normal. ABDOMEN: Abdomen distention. Palpable fluid wave. Right upper quadrant tenderness. BACK: Normal range of motion. No tenderness. MUSCULOSKELETAL: Upper extremities, normal range of motion. Radial pulses are normal. Lower extremities, normal range of motion. Motor strength is normal. Pedal pulses are normal. There is pitting edema. NEUROLOGIC: The patient is oriented to person, place, and time. Speech is normal. No focal motor or sensory deficits. SKIN: Jaundiced, spider angiomata. PSYCH: Has a normal affect and she is oriented to person, place, and time. IMAGING STUDIES: EKG in the emergency room shows sinus tach, beats per minute 112, possible left atrial enlargement. ASSESSMENT AND PLAN: 1. Ascites with abdominal distention, constipation, and abdominal pain. We will obtain some blood cultures. Start some Rocephin. We have asked GI to consult for a possible paracentesis. Lactulose 10 mg t.i.d. has been started. 2. Hypokalemia. K-Dur 40 mEq today and b.i.d. Recheck values in the morning. 3. Abnormal liver enzymes. We will recheck values in the morning. 4. Smoking cessation counseling. 5. Deep venous thrombosis and gastrointestinal prophylaxis started. 6. The patient discussed with who agrees with plan. 7. Hospital course is dependent on clinical findings. Job ID: [id number]
[2019-03-25] MEDS: Morphine 4 MG/ML VIAL SLOW IVP PRN (20:19)
[2019-03-25] MEDS: Zolpidem Tartrate 5 MG TAB PO SCH (21:18)
--- NOTE | 2019-03-25 22:23 | CON ---
DATE OF CONSULTATION: 03/25/2019 REASON FOR CONSULTATION: Worsening ascites, lower extremity edema, recent diagnosis of cirrhosis. CONSULTING PROVIDER: Dr. Mary Gibbons. HISTORY OF PRESENT ILLNESS: The patient is a 43-year-old female with past medical history of hypertension, depression, insomnia, tobacco abuse, chronic alcohol abuse, and resultant cirrhosis, presenting with complaints of shortness of breath, lower extremity edema, and increased abdominal girth. Per chart review, the patient was recently admitted to the hospital in January 2019 for complaints of increased shortness of breath and was ultimately treated for pneumonia. During the course of that admission, she was noted to have elevated LFTs in addition to cirrhotic morphology on imaging consistent with a diagnosis of cirrhosis. She was ultimately discharged to home with instructions to follow up in the outpatient basis in addition to following a low-sodium diet. However, over the last 2 to 3 weeks, she has been having worsening shortness of breath that was associated with increased abdominal girth, both of which progressively getting worse over the same time. She also states that she has been having worsening bilateral lower extremity edema over the same time period as well. Currently, she has been non-adherent to a low-sodium diet, consuming salty snacks and pickles as an outpatient, which could be further contributing to her worsening fluid retention. However, she also states that she has been having increased right upper quadrant abdominal pain that has been occurring over the last 5 days and progressively getting more frequent over the same time. She characterize the pain as a stabbing type sensation, will radiate to the midepigastric region, will last for up to 10 seconds in duration, worse with increased physical activity and bearing down to have a bowel movement, better with lying down. This pain will also reach a severity of 8/10, especially with rising from a lying to sitting position. She also describes the appearance of dark stools over the last 2 to 3 weeks, but has been taking Pepto-Bismol and iron supplementation and she also states that she has gained approximately 10 to 15 pounds over the last month as well since her prior discharge. Otherwise, she denies any nausea, vomiting, fevers, chills, hematemesis, hematochezia, dysphagia, odynophagia, encephalopathy, or overt jaundice. REVIEW OF SYSTEMS: A 10-category review of systems was obtained with all responses negative except for the pertinent positives as listed in HPI. PAST MEDICAL HISTORY: As per HPI. PAST SURGICAL HISTORY: Bilateral tubal ligation, left arm wound debridement. FAMILY HISTORY: Denies any GI malignancies, although her passed from cirrhosis of the liver approximately 5 years ago. SOCIAL HISTORY: Denies any alcohol or illicit drug use, but is currently smoking one-half pack per day. OUTPATIENT MEDICATIONS: Fluoxetine 10 mg daily, Prozac 40 mg daily, Ambien 5 mg daily. ALLERGIES: NO KNOWN DRUG ALLERGIES. PHYSICAL EXAMINATION: VITAL SIGNS: Temperature 98.3, pulse 111, blood pressure 118/75, respiratory rate 18, saturating 97% on room air. GENERAL: The patient was lying in bed, in no acute distress. Alert and oriented x4. HEENT: Normocephalic and atraumatic. Positive mild scleral icterus. NECK: Supple. No JVD noted. CARDIOVASCULAR: Tachycardic rate, but regular rhythm. No discernible murmurs, gallops, or rubs. RESPIRATORY: Clear to auscultation bilaterally, but with poor inspiratory effort. No discernible wheezes or rales were auscultated. ABDOMEN: Normoactive bowel sounds, soft. Mild abdominal tenderness in the right upper quadrant and midepigastric region. Moderate abdominal distention with shifting dullness. EXTREMITIES: No cyanosis or clubbing. 1+/2+ bilateral lower extremity edema extending to the bottom part of the knee. LABORATORY DATA: CBC with a white blood cell count of 9.9, hemoglobin 11.9, hematocrit 37, platelets 186. INR 1.2. Chemistry with a sodium of 133, potassium 3.1, chloride 102, CO2 of 23, BUN 6, creatinine 0.5, glucose 155, AST 208, ALT 39, alkaline phosphatase 316, total bilirubin 3.6. Calculated MELD score of 18. IMAGING DATA: EGD was performed on February 17, 2019, which showed mild esophagitis in the distal esophagus without the presence of esophageal varices. However, 2 shallow ulcers were also seen within the stomach with biopsies taken at that time showing only reactive gastropathy without the presence of H. pylori. CT of the abdomen and pelvis was obtained on March 25, 2019, which showed bibasilar atelectasis with trace left pleural effusion. Heterogeneous appearance of the liver was also seen with a [id number] amount of ascites seen around the liver and within the peritoneal cavity itself. Splenomegaly was also noted. ASSESSMENT AND PLAN: The patient is a 43-year-old female with past medical history of hypertension, depression, insomnia, tobacco abuse, alcohol abuse, and likely alcoholic cirrhosis, presenting with increased lower extremity edema and ascites. 1. Cirrhosis. The patient is presenting with a prior history/diagnosis of cirrhosis, most likely due to chronic alcohol abuse and now complicated by ascites and lower extremity edema; currently presenting with decompensated disease with a calculated MELD score of 18, which has passed the threshold for possible evaluation for transplant evaluation. She quit alcohol consumption approximately 1 month ago and denies any further use, although her AST to ALT ratio does question this particular activity. She did undergo EGD on February 17, 2019, which did not show any presence of esophageal varices. As of yet, she has not had a colonoscopy, but currently does not meet age-appropriate criteria for screening colonoscopy. Recommendations: a. The patient will need repeat imaging of the liver every 6 months for screening for hepatocellular carcinoma. b. The patient will need a repeat EGD in approximately 2 to 3 years based on the lack of esophageal varices or unless the patient decompensates further. c. Strongly recommend cessation of alcohol in any form. 2. Ascites/lower extremity edema. The patient is presenting with progressively worsening ascites and lower extremity edema over the last 3 to 4 weeks since her discharge from the hospital. Per the patient and chart review, the patient seems to have been placed on diuretic management while she was inpatient, but this was not continued in the outpatient. She has also been fairly non-adherent to a low-sodium diet with the consumption of salty snacks and pickles, which could then further lend itself towards the formation of fluid in a cirrhotic patient. However, she also does complain of increased abdominal pain in the right upper quadrant/midepigastric region, which is concerning for the presence of spontaneous bacterial peritonitis (although based on her current pain pattern, this is unlikely). Given her 10- to 15-pound weight gain over the last month and increased shortness of breath, the patient would probably benefit from paracentesis. Recommendations: a. I will order a paracentesis for tomorrow with labs for cell count, culture, albumin, and protein to further characterize the ascitic fluid. b. Would place the patient on a low-sodium diet (no more than 2000 mg daily). c. Would discontinue the use of furosemide, but transfer the patient to spironolactone given its increased efficacy in patients with cirrhosis. d. Antibiotic use is not indicated at this time unless the presence of SBP is confirmed. We will continue to follow. Please call with any questions. Dr. Lindsay will follow up this patient tomorrow. Job ID: [id number]
[2019-03-26] MEDS: Morphine 4 MG/ML VIAL SLOW IVP PRN ×4 (03:07→19:56)
[2019-03-26 06:00] LABS: #Basophils 0.1 thou/uL (0.0-0.2); #Eosinphils 0.1 thou/uL (0.0-0.7); #Lymphocytes 1.4 thou/uL (1.20-3.40); #Monocytes 0.6 thou/uL (0.11-0.59); #Neutrophils 7.4 thou/uL (1.40-6.50); %Basophils 0.7 % (0.0-1.0); %Eosinophils 0.9 % (0.0-10.0); %Neutrophils 77.4 % (42.0-75.0); Hemoglobin 10.2 g/dL (12.0-16.0); Mean Corpuscular HGB CONC 29.8 g/dL (32.0-36.0); Mean Corpuscular Hemoglobin 31.7 pg (27.0-31.0); Mean Platelet Volume 8.1 fL (7.4-10.4); Platelet Count 211 thou/uL (130-400); RBC Distribution Width 13.8 % (11.5-14.5); Red Blood Cell (RBC) Count 3.21 mill/uL (4.20-5.40); White Blood Cell (WBC) Count 9.5 thou/uL (4.8-10.8)
[2019-03-26 06:20] LABS: ALT (SGPT) 38 U/L (8-55); AST (SGOT) 186 U/L (5-34); Albumin 1.8 g/dL (3.5-5.0); Alkaline Phosphatase 286 U/L (40-110); Anion Gap 11 mmol/L (10-20); BUN (Urea Nitrogen) 6 mg/dL (7.0-18.7); Bilirubin, Total 2.9 mg/dL (0.2-1.2); Calc. Creatinine Clearance 148 mL/min (70-130); Calcium 7.3 mg/dL (7.8-10.44); Carbon Dioxide 23 mmol/L (22-29); Chloride 101 mmol/L (98-107); Estimated GFR-MDRD Greater than 90; Glucose 91 mg/dL (70-105); Iron 32 ug/dL (50-170); Iron Binding Capacity, Total 134 mcg/dL (265-497); Potassium 3.6 mmol/L (3.5-5.1); Protein, Total 4.8 g/dL (6.0-8.3); Sodium 131 mmol/L (136-145)
[2019-03-26] MEDS ORDERED: Spironolactone 25 MG TAB PO SCH (08:15)
[2019-03-26] MEDS: Folic Acid 1 MG TAB PO SCH (08:28)
[2019-03-26] MEDS: FLUoxetine HCl 20 MG CAP PO SCH (08:28)
[2019-03-26] MEDS: Potassium Chloride 20 MEQ TAB PO SCH ×2 (08:28→16:50)
[2019-03-26] MEDS: Furosemide 20 MG TAB PO SCH (08:28)
--- NOTE | 2019-03-26 10:00 | PDOC.HOSPP ---
- Subjective Subjective: No complaints at this time other then abdominal pain on palpation. Otherwise comfortable lying down in bed. - Objective Vital Signs & Weight: Vital Signs (12 hours) Temp Pulse Resp BP Pulse Ox 03/26/19 07:56 98.0 F 99 18 107/66 96 03/26/19 04:06 98.0 F 103 H 19 111/78 96 03/26/19 00:00 98.1 F 112 H 18 115/74 95 Weight Weight 141 lb 7 oz I&O: 03/25/19 03/26/19 03/27/19 06:59 06:59 06:59 Intake Total 460 Balance 460 Result Diagrams: 03/26/19 05:41 03/26/19 05:41 Hospitalist ROS - Review of Systems Constitutional: denies: fever, chills, sweats, weakness, malaise, other Respiratory: denies: cough, dry, shortness of breath, hemoptysis, SOB with excertion, pleuritic pain, sputum, wheezing, other Cardiovascular: denies: chest pain, palpitations, orthopnea, paroxysmal noc. dyspnea, edema, light headedness, other Gastrointestinal: reports: abdominal pain. denies: nausea, vomiting, diarrhea, constipation, melena, hematochezia, other - Medication Medications: Active Medications Generic Name Dose Route Start Last Admin Trade Name Freq PRN Reason Stop Dose Admin Fluoxetine HCl 20 mg 03/26/19 09:00 03/26/19 08:28 Prozac PO 20 mg DAILY MK Administration Folic Acid 1 mg 03/26/19 09:00 03/26/19 08:28 Folvite PO 1 mg DAILY MK Administration Furosemide 20 mg 03/26/19 09:00 03/26/19 08:28 Lasix PO 20 mg DAILY MK Administration Ceftriaxone Sodium 2 gm/ 100 mls @ 200 mls/hr 03/25/19 18:00 03/25/19 20:04 Sodium Chloride IVPB 100 mls Q24HR MK Administration Lactulose 10 gm 03/25/19 21:00 03/26/19 08:29 Lactulose PO 10 gm TID MK Administration Morphine Sulfate 4 mg 03/25/19 19:30 03/26/19 07:23 Morphine SLOW IVP 4 mg Q4H PRN Administration Severe Pain (7-10) Pantoprazole Sodium 40 mg 03/26/19 09:00 03/26/19 08:28 Protonix PO 40 mg DAILY MK Administration Potassium Chloride 40 meq 03/26/19 08:00 03/26/19 08:28 K-Dur PO 40 meq BID-WM MK Administration Sodium Chloride 10 ml 03/25/19 17:24 03/26/19 07:24 Flush - Normal Saline IVF 10 ml PRN PRN Administration Saline Flush Spironolactone 50 mg 03/26/19 08:15 03/26/19 08:28 Aldactone PO 03/26/19 10:15 50 mg NOW MK Administration Zolpidem Tartrate 5 mg 03/25/19 21:00 03/25/19 21:18 Ambien PO 5 mg HS MK Administration - Exam General Appearance: NAD, ill appearing Eye: PERRL, anicteric sclera ENT: normocephalic atraumatic, no oropharyngeal lesions, moist mucosa Neck: supple, symmetric, no JVD, no thyromegaly, no lymphadenopathy, no carotid bruit Heart: RRR, no murmur, no gallops, no rubs, normal peripheral pulses Respiratory: CTAB, no wheezes, no rales, no ronchi, normal chest expansion, no tachypnea, normal percussion Gastrointestinal: no bruit Gastrointestinal - other findings: tense, massive ascited, distended veins, tender to palpation Extremities: no cyanosis, no clubbing, no edema Skin: normal turgor, no lesions, no rashes Neurological: cranial nerve grossly intact, normal sensation to touch, no weakness, no focal deficits, no new deficit Musculoskeletal: normal tone, normal strength, no muscle wasting Psychiatric: normal affect, normal behavior, A&O x 3 Hosp A/P (1) Cirrhosis of liver with ascites Code(s): K74.60 - UNSPECIFIED CIRRHOSIS OF LIVER; R18.8 - OTHER ASCITES Status : Acute (2) Alcoholic cirrhosis of liver Code(s): K70.30 - ALCOHOLIC CIRRHOSIS OF LIVER WITHOUT ASCITES Status: Acute (3) Hyponatremia Code(s): E87.1 - HYPO-OSMOLALITY AND HYPONATREMIA Status: Acute (4) Macrocytic anemia Code(s): D53.9 - NUTRITIONAL ANEMIA, UNSPECIFIED Status: Acute - Plan Pending paracentesis for therapeutic removal of fluid, will go tomorrow Hyponatremia likely related to cirrhosis, will improve after paracentesis most likely Continue lasix and spinolactone Continue folic acid Cirrhosis, low sodium diet DVT Prophyalxis: SCDs Code status: Full Disposition: For paracentesis. Continue other supportive care.
[2019-03-26] MEDS: cefTRIAXone\\ROCEPHIN 2 GM in Sodium Chloride 0.9% 100 ML IVPB SCH (17:44)
[2019-03-26] MEDS: Zolpidem Tartrate 5 MG TAB PO SCH (19:56)
[2019-03-27 06:47] LABS: Anion Gap 8 mmol/L (10-20); BUN (Urea Nitrogen) 6 mg/dL (7.0-18.7); Calc. Creatinine Clearance 158 mL/min (70-130); Calcium 7.5 mg/dL (7.8-10.44); Carbon Dioxide 25 mmol/L (22-29); Chloride 104 mmol/L (98-107); Estimated GFR-MDRD Greater than 90; Glucose 88 mg/dL (70-105); Sodium 133 mmol/L (136-145)
[2019-03-27 07:04] VITALS: BP 103/68; TEMP 98.3
[2019-03-27] MEDS: Furosemide 20 MG TAB PO SCH (08:00)
[2019-03-27] MEDS: Folic Acid 1 MG TAB PO SCH (08:00)
[2019-03-27] MEDS: FLUoxetine HCl 20 MG CAP PO SCH (08:00)
[2019-03-27] MEDS: Potassium Chloride 20 MEQ TAB PO SCH (08:00)
[2019-03-27] MEDS ORDERED: Sodium Bicarbonate 2.5 MEQ/5 ML VIAL ONE (09:02)
--- NOTE | 2019-03-27 09:52 | ULT ---
PREPROCEDURE DIAGNOSIS: Ascites POST PROCEDURE DIAGNOSIS: Same PROCEDURE: Ultrasound-guided paracentesis HEALTH AND PHYSICAL EDUCATION PROFESSOR: Sherley ANESTHESIA: 6 mL of buffered 1% lidocaine. SPECIMEN: 2.7 L of straw-colored fluid TECHNIQUE: Prior to the procedure, the risks and benefits of an ultrasound guided paracentesis were explained to the patient which consented fully to the procedure. The area of the largest fluid collection was seen in the left lower quadrant of the abdomen. This are a was prepped and draped in the usual sterile fashion. Lidocaine was used to anesthetize the skin and soft tissues down towards the peritoneal cavity. The p eritoneum was anesthetized. A small skin incision was made for passage of the [employer] needle and catheter. This device was then placed using ultrasound guidance into the peritoneal cavity. The needle was removed after return of fluid. The catheter was then connected to multiple Vacutainer bottles. A total of 2.7 L was removed. No residual fluid is seen in this region of the peritoneal cavity. IMPRESSION: Status post successful ultrasound-guided paracentesis
[2019-03-27 12:00] LABS: Body Fluid Source Ascites Body Fluid; RBC Count-Automated (BF) 67 /cumm; WBC/Nucleated-Auto (BF) 39 uL
[2019-03-27 12:01] LABS: BF Color Yellow; Clarity Clear (Clear); Tube # EDTA
[2019-03-27 12:03] LABS: BF Segmented Neutrophils 6 %; Cell Count Non Hematic 81 %; Lymphocytes 12 %
--- NOTE | 2019-03-27 18:44 | PDISCHARGE ---
Discharge - Disposition Disposition: HOME - Ambulatory Orders Prescriptions: Spironolactone 50 mg PO DAILY 30 Days #30 tablet - Patient Instructions Pre-Printed Education: Paracentesis, Care After, Ascites Care Plan Goals: FOCUS: Transition from Acute Care after Discharge GOAL: Successful transition to care in the community YOUR TASKS: (1) review all information outlined in your discharge packet (2) follow any instructions outlined in your discharge packet (3) contact your primary care provider if you have questions or need additional assistance - Referrals and PCP Follow-Up Referrals and PCP Follow-Up: Lali Mcknight MD [Primary Care Provider] - 7 Days Miguel Lindsay MD [Active] - (FOLLOW UP INSTRUCTED) - Activity Instructions Activity:: Activity as Tolerated - Nourishment Instructions Nourishment:: Low Sodium Diet Course - Course Orders, Labs, Meds: Admitted for abdominal pain, massive ascited. history of liver cirrhosis due to alcoholism. Underwent therapeutic paracentesis with improvement in symptoms. Will continue diuretic therapy and folllow in the outpatient with her GI physician. Discussed with her GI, she is expected to follow up in the next 1 to 2 weeks. Hosp A/P (1) Cirrhosis of liver with ascites Code(s): K74.60 - UNSPECIFIED CIRRHOSIS OF LIVER; R18.8 - OTHER ASCITES Status : Acute (2) Alcoholic cirrhosis of liver Code(s): K70.30 - ALCOHOLIC CIRRHOSIS OF LIVER WITHOUT ASCITES Status: Acute (3) Hyponatremia Code(s): E87.1 - HYPO-OSMOLALITY AND HYPONATREMIA Status: Acute (4) Macrocytic anemia Code(s): D53.9 - NUTRITIONAL ANEMIA, UNSPECIFIED Status: Acute
[2019-03-28 13:03] LABS: EliA Vaculitis New Method **** NEW METHOD ****; Mitochondrial Ab Less than 0.5 U/mL (<4 Negative)
== END 2019-03-27 13:06 | disposition home or self-care (01) ==
LOC: ERS 11:05 → T4-A 18:21 → INTOOBSV 19:00 → T4-A 19:00
PROVIDERS: ADMIT Internal Medicine; ATTEND Internal Medicine
PROC: 0W9G3ZX Drainage of Peritoneal Cavity, Percutaneous Approach, Diagnostic (ICD-10-PCS; principal; 2019-03-27)
DX: K70.31 Alcoholic cirrhosis of liver with ascites (principal); D25.9 Leiomyoma of uterus, unspecified; I10 Essential (primary) hypertension; F32.9 Major depressive disorder, single episode, unspecified; F17.210 Nicotine dependence, cigarettes, uncomplicated; F10.11 Alcohol abuse, in remission; E87.6 Hypokalemia; R16.1 Splenomegaly, not elsewhere classified; G47.00 Insomnia, unspecified; E87.1 Hypo-osmolality and hyponatremia; D53.9 Nutritional anemia, unspecified; Z79.899 Other long term (current) drug therapy
CPT/HCPCS: 36415; 49083; 71045; 74177; 80048; 80053; 82042; 82103; 82390; 82550; 82728; 83516; 83540; 83550; 83690; 83880; 84157; 84484; 85025; 85060; 85610; 85730; 87040; 87070; 87205; 89051; 93005; 96365; 96374; 96375; 96376; G0378; J0696; J2270; J2405; J3490

== ENCOUNTER 2019-04-12 10:57 | Inpatient (IN) | payer SELFPAY ==
[2019-04-12 12:07] LABS: #Basophils 0.1 thou/uL (0.0-0.2); #Eosinphils 0.1 thou/uL (0.0-0.7); #Lymphocytes 1.4 thou/uL (1.20-3.40); #Monocytes 0.6 thou/uL (0.11-0.59); #Neutrophils 5.5 thou/uL (1.40-6.50); %Basophils 1.1 % (0.0-1.0); %Eosinophils 1.1 % (0.0-10.0); %Lymphocytes 18.3 % (21.0-51.0); %Monocytes 7.4 % (0.0-10.0); %Neutrophils 72.1 % (42.0-75.0); Mean Corpuscular HGB CONC 31.7 g/dL (32.0-36.0); Mean Corpuscular Hemoglobin 32.2 pg (27.0-31.0); Mean Platelet Volume 7.9 fL (7.4-10.4); Platelet Count 224 thou/uL (130-400); Red Blood Cell (RBC) Count 4.03 mill/uL (4.20-5.40); White Blood Cell (WBC) Count 7.6 thou/uL (4.8-10.8)
--- NOTE | 2019-04-12 12:13 | RAD ---
XR Chest 1 View Portable HISTORY: Dyspnea, Abdominal pain and ascites COMPARISON: 03/25/2019 FINDINGS: The heart size is normal. There is continued elevation the right hemidiaphragm with small p leural effusions. No pneumothoraces or lobar consolidation is seen..
[2019-04-12] MEDS ORDERED: Ondansetron PF 4 MG/2 ML Vial ONE (12:17)
[2019-04-12] MEDS ORDERED: Morphine 4 MG/ML VIAL ONE ×2 (12:17→15:30)
[2019-04-12 12:32] LABS: ALT (SGPT) 17 U/L (8-55); AST (SGOT) 81 U/L (5-34); Albumin 2.4 g/dL (3.5-5.0); Alkaline Phosphatase 229 U/L (40-110); Anion Gap 15 mmol/L (10-20); BUN (Urea Nitrogen) 7 mg/dL (7.0-18.7); Bilirubin, Total 1.5 mg/dL (0.2-1.2); CK (CPK) 28 U/L (29-168); Calc. Creatinine Clearance 0 mL/min (70-130); Calcium 8.1 mg/dL (7.8-10.44); Carbon Dioxide 19 mmol/L (22-29); Chloride 103 mmol/L (98-107); Estimated GFR-MDRD Greater than 90; Globulin 3.7 g/dL (2.4-3.5); Glucose 85 mg/dL (70-105); Lipase 17 U/L (8-78); Potassium 3.9 mmol/L (3.5-5.1); Protein, Total 6.1 g/dL (6.0-8.3); Sodium 133 mmol/L (136-145)
[2019-04-12 12:47] LABS: Bilirubin Negative (Negative); Blood, Urine 1+ (Negative); Clarity Turbid (Clear); Glucose, Urine (Dipstick) Normal (Negative); Leukocyte 500 Leu/uL (Negative); Nitrite Negative (Negative); Protein, Urine (Dipstick) 30 mg/dL (Neg-Trace); RBC/HPF Greater than 50 HPF (0-3); Urobilinogen 3 mg/dL (Less than 2); WBC/HPF Greater than 50 HPF (0-3)
[2019-04-12 12:54] LABS: INR-International Normal Ratio 1.1
[2019-04-12 13:01] LABS: Bacteria/HPF 3+ HPF (None Seen)
[2019-04-12] MEDS ORDERED: Ciprofloxacin 500 MG TAB ONE (13:44)
[2019-04-12 14:45] LABS: CSF Source CSF; Clarity Hazy (Clear); Tube # 1
[2019-04-12 14:47] LABS: Cell Count Non Hematic 51 %; Lymphocytes 41 %; Segmented Neutrophils 8 %
[2019-04-12] MEDS ORDERED: Sodium Chloride 0.9% 100 ML ONE (15:19)
[2019-04-12] MEDS ORDERED: cefTRIAXone\\ROCEPHIN 2 GM VIAL ONE (15:19)
[2019-04-12] MEDS ORDERED: Ondansetron PF 4 MG/2 ML Vial IVP PRN (16:28)
[2019-04-12] MEDS ORDERED: Albumin 25% 25 GM/100 ML BOT IVPB SCH (16:45)
[2019-04-12 19:04] VITALS: BMI 21.1
[2019-04-12] MEDS: Mometasone/Formoterol 120 PUFF INHALER INH SCH (20:19)
[2019-04-12] MEDS ORDERED: Melatonin 3 MG TAB PO SCH (21:00)
[2019-04-12] MEDS ORDERED: Nicotine 14 MG PATCH TD SCH (21:00)
[2019-04-12] MEDS ORDERED: Zolpidem Tartrate 5 MG TAB PO SCH (21:00)
[2019-04-12] MEDS: Famotidine 20 MG TAB PO SCH (22:04)
[2019-04-12] MEDS: Morphine 4 MG/ML VIAL SLOW IVP PRN (22:12)
--- NOTE | 2019-04-12 23:29 | HP ---
CHIEF COMPLAINT: Abdominal pain. HISTORY OF PRESENT ILLNESS: The patient is a 43-year-old female with a history of cirrhosis secondary to alcohol use, who presents to the hospital with complaints of abdominal pain worsening over the past week. The patient states that she has been eating a lot of pickles and has noticed increased abdominal girth, which increased in intensity today. She also complains of abdominal pain, however, denies any fevers or chills. She also states that she has been having some lower back pain and some weakness when she has been getting up to go to the bathroom. She also states that she has been having nausea, however, no vomiting or diarrhea. PAST MEDICAL HISTORY: As of the following: She has a history of cirrhosis secondary to alcohol use, hypertension. PAST SURGICAL HISTORY: She has had tubal ligation, left arm debridement. PSYCHIATRIC HISTORY: Depression. REVIEW OF SYSTEMS: All negative except for the ones mentioned above in the HPI. SOCIAL HISTORY: She continues to smoke half a pack a day. Denies any alcohol use since her diagnosis of cirrhosis or any drug use. She is a full code. Lives with her mother. ALLERGIES: NO KNOWN DRUG ALLERGIES. MEDICATIONS: As of the followin. Spironolactone 100 mg daily. 2. Tramadol 50 mg daily p.r.n. 3. Lasix 40 mg daily. 4. Fluoxetine 20 mg daily. 5. Ambien 5 mg p.o. daily. PHYSICAL EXAMINATION: VITAL SIGNS: Temperature of 98.9, pain of 7, 98% on room air, 126/74, pulse of 103, 18. GENERAL: She is awake, alert, and oriented x3. Does not appear in any distress. HEENT: Normocephalic, atraumatic. No lymphadenopathy noted. She does have significant amount of spider angioma around her chest area. LUNGS: Mild expiratory wheezes heard in her lungs. CV: S1 and S2 present. Mildly tachycardic. ABDOMEN: Soft. Bowel sounds are present x2. Pain upon palpation all over. She does have superficial veins that are noted in her abdomen area. EXTREMITIES: No edema. Pedal pulses are present x2. 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 SKIN: No cuts, lesions or bruises noted. LABORATORY RESULTS: As of the following; WBCs of 7.6, hemoglobin of 13.0, hematocrit of 40.9, platelets of 224. Chemistry; sodium of 133, potassium of 3.9, BUN of 7, creatinine 0.53. Her bilirubin is 1.5, AST is 81, alkaline phosphatase 229. CK is 28. She had a chest x-ray, which did not show any acute abnormalities. ASSESSMENT AND PLAN: The patient is a very pleasant 43-year-old female, who presents to the hospital with worsening abdominal pain. 1. Abdominal pain, most likely secondary to significant ascites. The patient underwent 4 L paracentesis done in the ER. Her neutrophils were only 8. However, her WBCs were 339. At this time, she was started on ceftriaxone. She also has urinary tract infections and her culture has been sent. However, she denies any fevers or chills. Given the neutrophils of only 8, I doubt that this is SBP. We will consult GI for further evaluation. We will continue her diuretics. The patient has been advised against eating pickles and eating a low-salt diet and also fluid restriction. She understands. 2. Mildly elevated LFTs, most likely secondary to her liver disease. We will continue to monitor. 3. Smoking session. The patient has been advised against smoking. She understands. 4. Deep venous thrombosis prophylaxis. We will put the patient on subcu Lovenox. Job ID: [id number]
[2019-04-13 05:55] LABS: #Eosinphils 0.1 thou/uL (0.0-0.7); #Lymphocytes 1.2 thou/uL (1.20-3.40); #Monocytes 0.4 thou/uL (0.11-0.59); #Neutrophils 3.4 thou/uL (1.40-6.50); %Basophils 0.9 % (0.0-1.0); %Eosinophils 2.1 % (0.0-10.0); %Lymphocytes 23.4 % (21.0-51.0); %Neutrophils 65.7 % (42.0-75.0); Hemoglobin 11.1 g/dL (12.0-16.0); Mean Corpuscular HGB CONC 32.8 g/dL (32.0-36.0); Mean Corpuscular Hemoglobin 32.7 pg (27.0-31.0); Mean Corpuscular Volume 99.6 fL (78.0-98.0); Mean Platelet Volume 8.5 fL (7.4-10.4); Platelet Count 151 thou/uL (130-400); RBC Distribution Width 12.9 % (11.5-14.5); Red Blood Cell (RBC) Count 3.38 mill/uL (4.20-5.40); White Blood Cell (WBC) Count 5.2 thou/uL (4.8-10.8)
[2019-04-13 06:19] LABS: Anion Gap 13 mmol/L (10-20); BUN (Urea Nitrogen) 6 mg/dL (7.0-18.7); Calc. Creatinine Clearance 104 mL/min (70-130); Calcium 7.6 mg/dL (7.8-10.44); Carbon Dioxide 20 mmol/L (22-29); Chloride 104 mmol/L (98-107); Estimated GFR-MDRD Greater than 90; Glucose 142 mg/dL (70-105); Potassium 3.8 mmol/L (3.5-5.1); Sodium 133 mmol/L (136-145)
[2019-04-13] MEDS: Mometasone/Formoterol 120 PUFF INHALER INH SCH (06:59)
[2019-04-13] MEDS ORDERED: Furosemide 40 MG TAB PO SCH (07:30)
[2019-04-13] MEDS: Morphine 4 MG/ML VIAL SLOW IVP PRN (08:10)
[2019-04-13] MEDS: Famotidine 20 MG TAB PO SCH (08:10)
[2019-04-13 08:15] VITALS: BP 110/73; TEMP 98.3
[2019-04-13] MEDS ORDERED: FLUoxetine HCl 20 MG CAP PO SCH (09:00)
[2019-04-13] MEDS ORDERED: Folic Acid 1 MG TAB PO SCH (09:00)
[2019-04-13] MEDS ORDERED: Enoxaparin Sodium 40 MG/0.4 ML SYRINGE SC SCH (09:00)
[2019-04-13] MEDS ORDERED: cefTRIAXone\\ROCEPHIN 1 GM in Sodium Chloride 0.9% 100 ML IVPB SCH (15:00)
--- NOTE | 2019-04-13 15:43 | CON ---
DATE OF CONSULTATION: 04/13/2019 REQUESTING PHYSICIAN: Kay Ramos MD REASON FOR CONSULTATION: Ascites and abdominal pain. HISTORY OF PRESENT ILLNESS: Carol Ozuna is a 43-year-old woman, who was diagnosed with cirrhosis during hospitalization in January of last year, seen by Dr. Lindsay at that time. Diagnosis was based on imaging as well as development of ascites. She had an EGD at that time, which demonstrated no esophageal varices. She did not follow up with him and was briefly hospitalized here again in late February again with ascites. She had a 2.7 L paracentesis performed at that time. She was discharged on Lasix and spironolactone, which she says she has been taking. She says she tries to adhere to a low-sodium diet, but admits that she does not do very well with this. She eats a lot of pickles and uses a lot of celery salt. At any rate, over the past few days, she had again progressive abdominal distention and generalized abdominal pain associated with this. There has been no fever. No nausea or vomiting. She came in through the emergency department due to the pain. She had another paracentesis at this time, 4 L of fluid removed. She is currently feeling a lot better. Abdominal discomfort and a bit of distention persist, but she is feeling better after paracentesis yesterday. REVIEW OF SYSTEMS: Full review of systems including constitutional; head, eyes, ears, nose, and throat; GI; ; cardiovascular; respiratory; musculoskeletal; and neurologic systems is negative except as noted in the HPI. PAST MEDICAL HISTORY: 1. Cirrhosis, diagnosed in 01/2019, secondary to alcohol. 2. Tobacco abuse, ongoing. 3. Prior alcohol abuse, quit in 01/2019. 4. Insomnia. 5. Depression. 6. Hypertension. PAST SURGICAL HISTORY: 1. Bilateral tubal ligation. 2. Left arm wound debridement. FAMILY HISTORY: Negative for GI malignancy. Her from cirrhosis about 5 years ago. SOCIAL HISTORY: No current alcohol or drug use, but she does continue to smoke. Quit drinking alcohol in 01/2019. ALLERGIES: NO KNOWN DRUG ALLERGIES. OUTPATIENT MEDICATIONS: 1. Spironolactone 100 mg daily. 2. Lasix 40 mg daily. 3. Fluoxetine 20 mg daily. 4. Ambien 5 mg daily. 5. Tramadol 50 mg daily p.r.n. PHYSICAL EXAMINATION: VITAL SIGNS: Temperature 98.3, pulse 97, blood pressure 110/73, and 96% oxygen saturation on room air. GENERAL: No acute distress. SKIN: No jaundice. No rashes were palpable. EYES: No scleral icterus. Extraocular movements intact. ENT: Mucous membranes moist. No oral lesions. LYMPH: No submandibular or supraclavicular lymphadenopathy. THYROID: Nontender to palpation. HEART: Regular rate and rhythm. LUNGS: Clear to auscultation bilaterally. ABDOMEN: Mild distention, tympanitic to percussion in the dependent portions of the abdomen. Bowel sounds are present. Soft, nontender to palpation. EXTREMITIES: No peripheral edema. VESSELS: Radial pulses 2+ bilaterally. NEUROLOGIC: Cranial nerves 2 through 12 intact bilaterally. No focal deficits. LABORATORY STUDIES: WBC 5.2, hemoglobin 11.1, and platelets 151. INR is 1.1. Sodium 133, potassium 3.8, BUN 6, creatinine 0.59, glucose 142, and calcium 7.6. Total bilirubin 1.5, alkaline phosphatase 229, AST 81, ALT 17, albumin 2.4, and lipase 17. Note, recently normal alpha-1 antitrypsin and ceruloplasmin levels. Ferritin only 110.35. Negative viral hepatitis serologies. Negative HIV. Negative SUSANA, ASMA, and AMA. Ascites fluid studies demonstrate only 8% neutrophils, fluid cytology is pending, total wbc count was not reported. IMAGING STUDIES: Chest x-ray shows small pleural effusions, elevation of the right hemidiaphragm. Recent CT of the abdomen and pelvis from 03/25/2019 showed heterogeneous enhancement of the liver and mild splenomegaly as well as small to moderate ascites. ASSESSMENT AND PLAN: 1. Ascites, recurrent. This appears to be the primary decompensation of the patient's liver cirrhosis. She endorses compliance with diuretics, but given her good renal function, there would be room to go up on the dosing. It looks like she was taking Lasix 40 mg daily and spironolactone 100 mg daily. Consideration could be given to increasing both of these to twice daily dosing for the next couple of weeks, provided the patient is going to be able to follow up with Dr. Lindsay or her primary care provider within the next couple of weeks, to monitor electrolytes, etc. Otherwise, I think the patient could certainly do better with adherence to a low-sodium diet with no more than 2000 mg of sodium per day. She will continue to abstain from alcohol. 2. Generalized abdominal pain, secondary to ascites. For some reason, there is no report of total wbc's on the ascites fluid, but with only 8% neutrophils and lack of fever as well as symptomatic improvement after paracentesis, I doubt that she has spontaneous bacterial peritonitis. It looks like there is some fluid cytology still pending. 3. Cirrhosis, secondary to alcohol abuse. This is a fairly new diagnosis. Note, essentially otherwise negative lab workup for other etiologies, she has now stopped drinking alcohol, bilirubin has improved since most recent hospitalization. INR is satisfactory. No barriers to hospital discharge from a GI perspective. She is going to need close clinic followup with her primary physician as well as Dr. Lindsay in his [facility]. Please call back anytime with questions or concerns. Job ID: [id number]
--- NOTE | 2019-04-13 17:51 | DIS ---
DATE OF ADMISSION: 04/12/2019 DATE OF DISCHARGE: 04/13/2019 DISCHARGE DIAGNOSES: 1. Abdominal pain. 2. Ascites. 3. Cirrhosis. HOSPITAL COURSE: The patient is a 43-year-old female, who presents to the hospital with abdominal pain and abdominal increased girth. The patient had a 4 L paracentesis done in the ER. She was given albumin. Initially, there were thoughts of possible SBP; however, based on her ascites, neutrophils which were only 8, there was no SBP. The patient felt much relieved after she had her 4 L withdrawn. She has been eating very salty meals and I have advised her against eating salty meals. She was seen by GI, who recommended to follow up as an outpatient and also titrate her Lasix. HOME MEDICATIONS: Will be; 1. Lasix 40 mg twice a day. I have advised her if she feels dizzy or her blood pressure drops, she needs to take it every other day. 2. Levaquin 500 mg daily for possible UTI for the next three days. 3. Rifaximin 550 mg b.i.d. 4. Prozac 20 mg daily. 5. Pepcid 20 mg b.i.d. 6. DuoNeb as needed. 7. Spironolactone 50 mg daily. 8. Protonix 40 mg daily. 9. Melatonin 20 mg p.o. daily. PHYSICAL EXAMINATION: VITAL SIGNS: Temperature 98.3, pulse 97, respirations 16, O2 saturation 96% on room air, blood pressure 110/73. GENERAL: She is awake, alert, and oriented x3. Does not appear in distress. CV: S1, S2 present. No murmurs, rubs, or gallops. ABDOMEN: Soft and nontender. Bowel sounds are present x2. Again, she will be discharged home. She will follow up with her primary and also with GI. Job ID: [id number]
[2019-04-13] MEDS ORDERED: [UNRECOGNIZED DRUG - OTHER] PO SCH (21:00)
[2019-04-13] MEDS ORDERED: MELATONIN PO SCH (21:00)
== END 2019-04-13 16:20 | disposition home or self-care (01) | DRG 433 ==
LOC: ERS 10:57 → T4-A 16:16
PROVIDERS: ADMIT Internal Medicine; ATTEND Internal Medicine
PROC: 0W9G3ZZ Drainage of Peritoneal Cavity, Percutaneous Approach (ICD-10-PCS; principal; 2019-04-12)
DX: K70.31 Alcoholic cirrhosis of liver with ascites (principal); N39.0 Urinary tract infection, site not specified; G47.00 Insomnia, unspecified; I10 Essential (primary) hypertension; F32.9 Major depressive disorder, single episode, unspecified; Z98.51 Tubal ligation status
CPT/HCPCS: 36415; 49082; 71045; 80048; 80053; 81003; 81015; 82550; 83690; 85025; 85060; 85610; 85730; 87070; 87086; 87205; 89051; 94640; 96365; 96375; 96376; J0696; J1650; J2270; J2405; J3490; J7620; P9047

== ENCOUNTER 2022-01-20 12:31 | Outpatient (CLI) | payer OTHER | END 2022-01-20 12:32 | disposition home or self-care (01) | LOC: SCSMRI 12:31 | PROVIDERS: ATTEND Orthopaedic Surgery | DX: M75.101 Unspecified rotator cuff tear or rupture of right shoulder, not specified as traumatic (principal); S43.431A Superior glenoid labrum lesion of right shoulder, initial encounter; R60.0 Localized edema ==